=== PATIENT | male | born 1980 | race Caucasian/White ===

== ENCOUNTER 2022-11-24 09:46 | Outpatient (REF) | payer MEDICAID, SELFPAY ==
--- NOTE | ~2022-11-24 | XR_ITS ---
EXAMINATION: Thoracic and lumbar spine x-rays CLINICAL INFORMATION: Pain COMPARISON: Previous lumbar spine x-ray report December 2005. Images not available. TECHNIQUE: 3 views of the thoracic spine including swimmer's view and 5 views of the lumbar spine including bilateral oblique views FINDINGS: Thoracic spine: Bone alignment is normal. No fracture or dislocation. Mild degenerative spondylosis of the lower thoracic spine. Normal disc spaces. Normal paraspinal soft tissues. Lumbar spine: There may be a transitional vertebral body segment or 6 lumbar-type vertebral bodies. Bone alignment is normal. No fracture or dislocation. No pars defect. Normal facet joints. Normal disc spaces. Normal paraspinal soft tissues. XR/XR thoracic spine 2V IMPRESSION: Thoracic spine: Mild degenerative spondylosis of the lower thoracic spine. Lumbar spine: Probable transitional vertebral body segment or 6 lumbar-type vertebral bodies. Otherwise unremarkable exam.
--- NOTE | ~2022-11-24 | XR_ITS ---
EXAMINATION: Thoracic and lumbar spine x-rays CLINICAL INFORMATION: Pain COMPARISON: Previous lumbar spine x-ray report December 2005. Images not available. TECHNIQUE: 3 views of the thoracic spine including swimmer's view and 5 views of the lumbar spine including bilateral oblique views FINDINGS: Thoracic spine: Bone alignment is normal. No fracture or dislocation. Mild degenerative spondylosis of the lower thoracic spine. Normal disc spaces. Normal paraspinal soft tissues. Lumbar spine: There may be a transitional vertebral body segment or 6 lumbar-type vertebral bodies. Bone alignment is normal. No fracture or dislocation. No pars defect. Normal facet joints. Normal disc spaces. Normal paraspinal soft tissues. XR/XR lumbar spine 4V min IMPRESSION: Thoracic spine: Mild degenerative spondylosis of the lower thoracic spine. Lumbar spine: Probable transitional vertebral body segment or 6 lumbar-type vertebral bodies. Otherwise unremarkable exam.
== END 2022-11-24 09:47 | disposition home or self-care (01) ==
LOC: HO.XRAY 09:46
PROVIDERS: PCP Nurse Practitioner Family; Visit Provider Registered Nurse
DX: M54.50 Low back pain, unspecified (principal)
CPT/HCPCS: 72070; 72110

== ENCOUNTER 2022-12-14 12:14 | Outpatient (REF) | payer MEDICAID, SELFPAY ==
--- NOTE | 2022-12-14 | EMG_ITS ---
Please see scanned EMG / Nerve Conduction Report. MTDD
== END 2022-12-14 12:15 | disposition home or self-care (01) ==
LOC: HO.NEURO 12:14
PROVIDERS: PCP Nurse Practitioner Family; Visit Provider Registered Nurse
DX: R20.0 Anesthesia of skin (principal); R20.2 Paresthesia of skin
CPT/HCPCS: 95885; 95911

== ENCOUNTER 2025-01-17 10:41 | Outpatient (AMB) | payer MEDICAID, SELFPAY ==
--- NOTE | 2025-01-17 10:48 | A.OFFVIS_ITS ---
Vital Signs 01/17/25 10:49 Height 5 ft 5 in Weight 159 lb BMI 26.5 BP 113/78 Blood Pressure Location Rt brachial Position Sitting Respiration 16 Pulse 77 Pulse Source Pulse Oximeter Pulse Oximetry (%) 93 Oxygen Delivery Method Room Air Intake Visit Reasons: Chronic bilateral low back pain Medicaid Billing Clerk Required: No Accompanied by: Self / Same As Patient Allergies No Known Allergies (No Known Allergies*) Allergy (Verified 01/17/25 10:52) HPI Comments Details: The patient is a 44-year-old male presenting with chronic low back pain with radiation down the right leg to the foot. The pain began in 2016 following a slip and fall accident. The pain radiates down the right leg to the foot, with symptoms including stabbing pain, numbness, and tingling in the 1st 2nd and 3rd toes. The patient reports that the pain worsens with inclement weather and is exacerbated by certain physical activities. Previous imaging includes x-rays and a CT scan conducted in 2022, with no MRI performed to date. The patient underwent physical therapy at [facility], which included massages, heat packs, and use of a TENS unit, but reported worsening symptoms post-therapy. The patient has been prescribed prednisone, ibuprofen, meloxicam, and cyclobenzaprine, with ibuprofen providing the most relief. The patient expresses anxiety regarding cortisone injections due to fear of adverse effects but is unable to tolerate this pain the longer so is ready to proceed with interventional management. Denies red flag symptoms including new loss of bowel, bladder or saddle anesthesia - Onset: Began in 2016 following a slip and fall accident - Quality: Stabbing pain, numbness, tingling - Location: Right lower back, radiating down the right leg to the foot - Exacerbating factors: Inclement weather, certain physical activities - Relieving factors: Ibuprofen provides relief - Interference: Affects ability to perform daily activities, worsens with sitting on hard surfaces - Affect: Pain impacts mood and daily functioning, causing frustration and anxiety - Analgesia: Currently using ibuprofen, meloxicam, and cyclobenzaprine; ibuprofen is most effective - Adverse Effects: Anxiety about potential adverse effects of cortisone injections - Activities of Daily Living: Pain limits ability to perform daily tasks and recreational activities like fishing - Aberrant Drug Related Behaviors: No evidence of medication misuse or abuse Review of Systems Const Details: - Musculoskeletal: Reports chronic low back pain, right-sided radiculopathy, and sacroiliac joint pain - Neurological: Reports tingling in right big toe and adjacent toes - Psychological: Reports anxiety related to medical procedures Physical Exam Vital Signs: Last Vital Signs Pulse 77 01/17/25 10:49 Resp 16 01/17/25 10:49 BP 113/78 01/17/25 10:49 Pulse Ox 93 01/17/25 10:49 Oxygen Delivery Method Room Air 01/17/25 10:49 BMI result Body Mass Index 26.5 General: awake, alert, oriented. Answers questions appropriately. Fully engaged in examination. Skin: warm, dry, intact HEENT: Normocephalic. Hearing intact. Cardiac: External chest normal in appearance. Respiratory: No cough, audible wheezing or stridor. Abdomen: without gross distension. MS: No obvious swelling or deformities. Able to stand on bilateral tiptoes and bilateral heels.? Able to transition from sit to stand unassisted. Ambulates with bilaterally normal heel strike and toe off Decreased lumbar range of motion, pain worse with extension versus flexion SLR positive on the right Right SIJ: Positive Ga[place], positive thigh thrust, positive SI compression. Tenderness over right PSIS Tenderness over midline lumbar vertebrae and lumbar paraspinal muscles Facet loading positive Neurological: Oriented to person, place, time and situation. Thought process intact. No gait abnormalities appreciated. Psychiatric: Appropriate mood and affect. Good judgment and insight. Results Reviewed Results Reviewed: 11/24/2022 XR/XR thoracic spine/lumbar spine FINDINGS: Thoracic spine: Bone alignment is normal. No fracture or dislocation. Mild degenerative spondylosis of the lower thoracic spine. Normal disc spaces. Normal paraspinal soft tissues. Lumbar spine: There may be a transitional vertebral body segment or 6 lumbar-type vertebral bodies. Bone alignment is normal. No fracture or dislocation. No pars defect. Normal facet joints. Normal disc spaces. Normal paraspinal soft tissues. IMPRESSION: Thoracic spine: Mild degenerative spondylosis of the lower thoracic spine. Lumbar spine: Probable transitional vertebral body segment or 6 lumbar-type vertebral bodies. Otherwise unremarkable exam. Assessment & Plan Assessment & Plan (1) Paresthesia: Code(s): R20.2 - Paresthesia of skin Category: Medical (2) Lumbar radiculopathy: Code(s): M54.16 - Radiculopathy, lumbar region Category: Medical (3) Sacroiliac joint dysfunction of right side: Code(s): M53.3 - Sacrococcygeal disorders, not elsewhere classified Category: Medical Plan The plan includes obtaining a new MRI of the lumbar spine to assess for neural compromise given patient's symptoms including lumbar radiculopathy and paresthesia of the right toes. X-rays of the lower back and sacroiliac joint will be completed, including bending views, to evaluate any bony abnormality. Physical therapy will be initiated to address the sacroiliac joint dysfunction and chronic low back pain. If physical therapy does not provide relief, the possibility of sacroiliac joint injections will be considered, as these can be performed while waiting for the lumbar MRI. The patient is advised to continue current medications, with a preference for ibuprofen due to its effectiveness, and to avoid combining meloxicam with ibuprofen. Patient was informed and verbally consented to the use of an ambient scribe for clinic note documentation during this visit. Orders: Orders XR lumbar spine 6V w bending Today M54.16 - Radiculopathy, lumbar region PT Evaluation and Treatment Today M53.3 - Sacrococcygeal disorders, not elsewhere classified, M54.16 - Radiculopathy, lumbar region MR lumbar spine wo con Today M54.16 - Radiculopathy, lumbar region, R20.2 - Paresthesia of skin XR sacroiliac joint min 3V Today M53.3 - Sacrococcygeal disorders, not elsew here classified Patient Instructions: - Schedule and complete the MRI and x-rays as ordered. - Begin physical therapy sessions as soon as possible. - Continue taking ibuprofen as needed for pain relief, but do not combine with meloxicam. - Return for follow-up after completing physical therapy to reassess treatment options. Coding Level of Care Code New Pt Level 4 (04098) Complex EM visit Add On G2211 Diagnoses Paresthesia R20.2 Lumbar radiculopathy M54.16 Sacroiliac joint dysfunction of right side M53.3
[2025-01-17 10:49] VITALS: BP 113/78; PULSE 77; RESP 16; O2SAT 93; BMI 26.5
--- OUTSIDE RECORDS SUMMARY | 2025-01-17 11:17 | XMS_ITS | Clinical Summary ---
Author Organization [employer] Address [address] [place] [address] Care Team Providers Care School Janitor Name Role Phone Hillary Greene SOHA Primary Care Provider [phone] Allergies No known active allergies Medications ibuprofen 600 MG tablet TAKE 1 TABLET BY MOUTH 3 TIMES DAILY. 90 tablet 12/24/19 25 Active cyclobenzaprin e (Flexeril) 10 MG tablet Take 1 tablet (10 mg) by mouth 3 times daily for 10 days. 30 tablet 12/26/19 25 Active meloxicam (Mobic) 15 MG tablet Take 1 tablet (15 mg) by mouth Once per day. 30 tablet 1 12/26/19 25 025 Active cyclobenzaprin e (Flexeril) 10 MG tablet Take 1 tablet (10 mg) by mouth 3 times daily for 10 days. 30 tablet 11/27/19 25 025 Discontinued(Re order (will not trigger notification to Pharmacy)) ibuprofen 600 MG tablet Take 1 tablet (600 mg) by mouth 3 times daily. 90 tablet 11/27/19 25 025 Discontinued predniSONE (Deltasone) 20 MG tablet Take 2 tablets (40 mg) by mouth Once per day for 5 days. 10 tablet 12/26/19 25 025 Active Problems Problem Noted Date Diagnosed Date Superficial injury of gum with infection 025 Difficulty sleeping 11/11/2022 Kidney stone 11/11/2022 Posttraumatic stress disorder 11/11/2022 Night sweats 11/11/2022 Overweight 11/11/2022 Smokes 1 pack of cigarettes per day 11/11/2022 Tobacco dependence syndrome 11/11/2022 Winded 11/11/2022 Encounters Date Type Department Care Team Description 12/25/2024 10:45 AM EDT Telemedicine [facility] [address] [place] [address] Paulino Simpson MD Chronic bilateral low back pain with left-sided sciatica (Primary Dx) 12/25/2024 Travel 12/23/2024 Telephone [facility] [address] [place] [phone] Hillary Greene FNP Nurse Triage 12/23/2024 Refill [facility] [address] [place] [phone] Paulino Simpson MD 11/30/2024 11:40 AM EDT Office Visit [facility] [address] [place] [phone] Gabriela Pichardo MD Superficial injury of gingiva with infection, initial encounter 11/27/2024 Telephone [facility] [address] [place] [phone] Hillary Greene FNP ER Follow-up 11/26/2024 7:00 PM EDT Office Visit [facility] [address] [address] Paulino Simpson MD Chronic bilateral low back pain with left-sided sciatica (Primary Dx) 11/15/2024 Telephone [facility] [address] [place] [phone] Hillary Greene FNP Referral from Last 3 Months Immunizations Immunization Administration Dates Next Due Influenza injectable quadrivalent preservative f ree 05/02/2022,08/27/2019 Influenza, seasonal, injectable, preservative fr ee 05/18/2016 Pneumococcal Polysaccharide PPSV23 05/18/2016 Tdap 08/30/2019 Social History Tobacco Use Types Packs/Day Years Used Date Smoking Tobacco: Every Day Cigarettes Smokeless Tobacco: Never Tobacco Cessation:Ready to Q uit: Not Asked; Counseling Given: Not Answered Alcohol Use Standard Drinks/Week Comments Never 0 (1 standard drink = 0.6 oz pur e alcohol) Depression Answer Date Recorded Patient Health Questionnaire-9 Score 0 12/25/2024 Patient Health Questionnaire-9 Score 0 12/25/2024 Last PHQ-9: Questionnaire Data Not on file 0 12/25/2024 Housing Stability Answer Date Recorded What is your housing situation today? I have cl herrera 12/25/[address] you li ve. Do you have problems with any of the following? None of the above 12/25/2024 Food Insecurity Answer Date Recorded Within the past 12 months, y ou worried that your food would run out before you got money to buy more: Never True 12/25/2024 Within the past 12 months,th e food you bought just didn't last and you didn't have enough money to get more: Never True Transportation Answer Date Recorded In the past 12 months, has l ack of transportation kept you from medical appts, meetings, work or from getting things needed for daily living? No 12/25/2024 Utilities Answer Date Recorded In the past 12 months, has t he electric, gas, oil or water company threatened to shut off services in your home? No 12/25/2024 Depression Answer Date Recorded Patient Health Questionnaire-2 Score 0 12/25/2024 Internet Access Answer Date Recorded Internet Access Q1 Yes 12/25/2024 Internet Access Q2 Not on file 12/25/2024 Sex and Gender Information Value Date Recorded Sex Assigned at Male 05/09/2022 10:35 AM EDT Legal Sex Male 10:35 AM EDT Gender Identity Male 05/09/2022 10:35 AM EDT Sexual Orientation Straight 05/09/2022 10 :35 AM EDT Last Filed Vital Signs Vital Sign Reading Time Taken Comments Blood Pressure 120/83 11/30/2024 11:31 AM EDT Pulse 74 11/30/2024 11:31 AM EDT Temperature 36.7 C (98 F) 11/30/2024 11:31 AM EDT Respiratory Rate 20 11/30/2024 11:31 AM EDT Oxygen Saturation 96% 11/30/2024 11:31 AM EDT Inhaled Oxygen Concentration - - Weight 77.1 kg (170 lb) 11/30/2024 11:31 AM EDT Height 165.1 cm (5' 5 ) 11/26/2024 6:58 PM EDT Body Mass Index 28.29 11/26/2024 6:58 PM EDT Plan of Treatment Upcoming Encounters Date Type Department Care Team (Late st Contact Info) Description 03/05/2025 10:30 AM EDT Office Visit [facility] [address] [place] [address] Hillary Greene, SOHA [address] [place] [address] Health Maintenance Due Date Last Done Comments Disability Screening 1980 Alcohol/Substance Use Screening 1992 Family Planning (PISQ) 1995 HPV Vaccines (1 - Male 3-dos e series) 1995 Hepatitis B Vaccines (1 of 3 - 19+ 3-dose series) 1999 Pneumococcal Vaccine: Pediatrics (0 to 5 Years) and At-Risk Patients (6 to 49) Years (2 of 2 - PCV) 05/18/2017 05/18/2016 COVID-19 Vaccine (4 - 2023-2 5 season) 2024 05/02/2022, 12/10/2020, 11/02/2020 Influenza Vaccine (#1) 2025 , 08/27/2019, 05/18/2016 Tobacco Screening 11/26/2025 11/26/2024 Depression Screening 12/25/2025 12/25/2024, 12/25/2024 SDOH Screening 12/25/2025 12/25/2024 Lipid Panel 05/20/2026 05/20/2021, 12/10/2020, 05/14/2020 DTaP/Tdap/Td Vaccines (2 - T d or Tdap) 08/30/2029 08/30/2019 Zoster Vaccines (1 of 2) 2030 RSV Patients and Patients Aged 60 years or older (1 - 1-dose 75+ series) 2055 HIV Screening Completed 05/14/2020 Hepatitis C Screening Completed 05/14/2020 HIB Vaccines Aged Out No longer eligi ble based on patient's age to complete this topic Hepatitis A Vaccines Aged Out No long er eligible based on patient's age to complete this topic IPV Vaccines Aged Out No longer eligi ble based on patient's age to complete this topic Meningococcal B Vaccine Aged Out No l onger eligible based on patient's age to complete this topic Meningococcal Vaccine Aged Out No say jennifer eligible based on patient's age to complete this topic RSV under 20 months Aged Out No longe r eligible based on patient's age to complete this topic Rotavirus Vaccines Aged Out No longer eligible based on patient's age to complete this topic Procedures Procedure Name Priority Date/Time Associated Diagnosis Comments LIPID PANEL, STANDARD Routine 05/20/2021 1:06 PM EST ZZZ HISTORICAL HEPATITIS C AB W/REFL TO HCV RNA, QN, PCR Routine 05/14/2020 8:17 PM EST HIV 1/2 ANTIGEN/ANTIBODY, FOURTH GENERATION W/RFL Routine 05/14/2020 8:17 PM EST from Last 3 Months or Most Recently Relevant to Health Maintenance Results * (ABNORMAL) LIPID PANEL, STANDARD (05/20/2021 1:06 PM EST) Chol/HDLC Ratio 6.0(H) <5.0 (calc) [facility] Cholesterol, Total 246(H) <200 mg/dL [facility] HDL Cholesterol 41 > OR = 40 mg/dL [facility] LDL Cholesterol 158(H) mg/dL (calc) [facility] Comment: Reference range: <100 Desirable range <100 mg/dL for primary prevention; <70 mg/dL for patients with CHD or diabetic patients with > or = 2 CHD risk factors. LDL-C is now calculated using the Kirk-Mcdaniel calculation, which is a validated novel method providing better accuracy than the Friedewald equation in the estimation of LDL-C. Kirk SS et al. SHOSHANA. 2013;310(19): 6024-1199 (http://education.Cono-C.Yvolver/faq/IGI459) Non-HDL Cholesterol 205(H) <130 mg/dL (calc) [facility] Comment: For patients with diabetes plus 1 major ASCVD risk factor, treating to a non-HDL-C goal of <100 mg/dL (LDL-C of <70 mg/dL) is considered a therapeutic option. Triglycerides 286(H) <150 mg/dL [facility] Comment: If a non-fasting specimen was collected, consider repeat triglyceride testing on a fasting specimen if clinically indicated. Latonia et al. J. of Clin. Lipidol. 2015;9:129-169. 05/20/2021 1:06 PM EST Alisha Byrd GEOLOGICAL TECHNICAL OFFICER LAB BLOOD ORDERABLES Final Res ult Performing Organization Address [facility] de Phone Number [facility] [address] [place] [address], * HEPATITIS C AB W/REFL TO HCV RNA, QN, PCR (05/14/2020 8:17 PM EST) HEPATITIS C ANTIBODY NON-REACT STEVEN NON-REACT STEVEN [facility] INDEX 0.02 <1.00 [facility] Comment: HCV antibody was non-reactive. There is no laboratory evidence of HCV infection. In most cases, no further action is required. However, if recent HCV exposure is suspected, a test for HCV RNA (test code 68365) is suggested. For additional information please refer to http://MacuLogix.Equipois/faq/SQS49o6 (This link is being provided for informational/ educational purposes only.) HEPATITIS C ANTIBODY NON-REACT STEVEN NON-REACT STEVEN [facility] INDEX 0.02 <1.00 [facility] Comment: HCV antibody was non-reactive. There is no laboratory evidence of HCV infection. In most cases, no further action is required. However, if recent HCV exposure is suspected, a test for HCV RNA (test code 79840) is suggested. For additional information please refer to http://MacuLogix.Equipois/faq/XNU52q3 (This link is being provided for informational/ educational purposes only.) 05/14/2020 8:17 PM EST Taya Brown CONSTRUCTION ACCOUNTANT HISTORICAL/NON ORDERABLE LA BS Final Result Performing Organization Address [facility] de Phone Number [facility] [address] * HIV 1/2 ANTIGEN/ANTIBODY,FOURTH GENERATION W/RFL (05/14/2020 8:17 PM EST) HIV-1/2 ANTIGEN AND ANTIBODIES, 4TH GENERATION W/ REFLEX NON-REACT STEVEN NON-REACT STEVEN [facility] Comment: HIV-1 antigen and HIV-1/HIV-2 antibodies were not detected. There is no laboratory evidence of HIV infection. PLEASE NOTE: This information has been disclosed to you from records whose confidentiality may be protected by state law. If your state requires such protection, then the state law prohibits you from making any further disclosure of the information without the specific written consent of the person to whom it pertains, or as otherwise permitted by law. A general authorization for the release of medical or other information is NOT sufficient for this purpose. For additional information please refer to http://MacuLogix.SportsBlogs.Yvolver/faq/EAO301 (This link is being provided for informational/ educational purposes only.) The performance of this assay has not been clinically validated in patients less than 2 years old. HIV-1/2 ANTIGEN AND ANTIBODIES, 4TH GENERATION W/ REFLEX NON-REACT STEVEN NON-REACT STEVEN [facility] Comment: HIV-1 antigen and HIV-1/HIV-2 antibodies were not detected. There is no laboratory evidence of HIV infection. PLEASE NOTE: This information has been disclosed to you from records whose confidentiality may be protected by state law. If your state requires such protection, then the state law prohibits you from making any further disclosure of the information without the specific written consent of the person to whom it pertains, or as otherwise permitted by law. A general authorization for the release of medical or other information is NOT sufficient for this purpose. For additional information please refer to http://MacuLogix.SportsBlogs.Yvolver/faq/UNJ439 (This link is being provided for informational/ educational purposes only.) The performance of this assay has not been clinically validated in patients less than 2 years old. HIV-1/2 ANTIGEN AND ANTIBODIES, 4TH GENERATION W/ REFLEX NON-REACT STEVEN NON-REACT STEVEN [facility] Comment: HIV-1 antigen and HIV-1/HIV-2 antibodies were not detected. There is no laboratory evidence of HIV infection. PLEASE NOTE: This information has been disclosed to you from records whose confidentiality may be protected by state law. If your state requires such protection, then the state law prohibits you from making any further disclosure of the information without the specific written consent of the person to whom it pertains, or as otherwise permitted by law. A general authorization for the release of medical or other information is NOT sufficient for this purpose. For additional information please refer to http://education.Equipois/faq/UBQ323 (This link is being provided for informational/ educational purposes only.) The performance of this assay has not been clinically validated in patients less than 2 years old. 05/14/2020 8:17 PM EST Taya Brown [facility] LAB BLOOD ORDERABLES Final Result [facility] [address] from Last 3 Months or Most Recently Relevant to Health Maintenance Insurance [employer] Care Teams School Janitor Relationship Specialty Start Date End Date Hillary Greene FNP [address] [place] [address] PCP - General Family Medicine 12/09/22
== END 2025-01-17 11:27 | disposition home or self-care (01) ==
LOC: HO.PMC 10:41
PROVIDERS: PCP Registered Nurse; Referring Provider Internal Medicine; Visit Provider Registered Nurse Emergency
DX: R20.2 Paresthesia of skin (principal); M54.16 Radiculopathy, lumbar region; M53.3 Sacrococcygeal disorders, not elsewhere classified
CPT/HCPCS: 99204

== ENCOUNTER → 2025-01-17 10:41 | Outpatient (BNVA) | payer MEDICAID, SELFPAY | PROVIDERS: PCP Registered Nurse; Referring Provider Internal Medicine; Visit Provider Registered Nurse Emergency | DX: M53.3 Sacrococcygeal disorders, not elsewhere classified (principal); M54.16 Radiculopathy, lumbar region; R20.2 Paresthesia of skin | CPT/HCPCS: 99212 ==

== ENCOUNTER 2025-01-21 14:08 | Outpatient (REF) | payer MEDICAID, SELFPAY ==
--- NOTE | ~2025-01-21 | XR_ITS ---
EXAMINATION: XR SACROILIAC JOINTS CLINICAL INFORMATION: M53.3 - Sacrococcygeal disorders, not elsewhere classified COMPARISON: None available. TECHNIQUE: AP and bilateral oblique views of the sacroiliac joints FINDINGS: SI joints are symmetrical without fusion, sclerosis, or erosions. No osteophytes are evident. XR/XR sacroiliac joint min 3V IMPRESSION: Unremarkable SI joints Electronically signed by: Juan Manuel Oliveira MD 01/21/2025 03:22 PM EDT
--- NOTE | ~2025-01-21 | XR_ITS ---
EXAMINATION: XR LUMBOSACRAL SPINE CLINICAL INFORMATION: M54.16 - Radiculopathy, lumbar region COMPARISON: November 24, 2022 TECHNIQUE: 6 views of the lumbar spine, inclusive of flexion and extension views, were obtained. FINDINGS: There are 5 nonrib-bearing lumbar segments with lumbarization of the S1 segment. Technique:: There are small endplate osteophytes. L1-2: There is mild disc space narrowing and endplate osteophytes. L2-3: Unremarkable. L3-4: There is subtle retrolisthesis and mild space narrowing. L4-5: There is mild disc space narrowing and endplate osteophytes. There is mild facet sclerosis. L5-S1: Unremarkable. S1-2: There is disc formation. With flexion and extension, there is no instability. Oblique views demonstrate no pars interarticularis defect. XR/XR lumbar spine 6V w bending IMPRESSION: There is lumbarization of the S1 segment. Mild multilevel degenerative disc disease has progressed since the prior. Electronically signed by: Juan Manuel Oliveira MD 01/21/2025 03:27 PM EDT
--- NOTE | ~2025-01-21 | XR_ITS ---
Exam: Three-view bilateral hands. TECHNIQUE: PA, oblique, lateral view upper extremity x-rays INDICATION: Bilateral hand there is pain, chronic Prior: None FINDINGS: RIGHT HAND: Chronic amputations the distal tuft of the third digit is present. No other bony abnormality is seen. There are no erosions and joint spaces are preserved. LEFT HAND: There is an expansile centrally lucent lesion within the radial aspect of the neck region of the proximal phalanx of fifth digit the could represent changes from remote fracture or an enchondroma. There is volar angulation of the neck of the fifth metacarpal, likely from a healed boxer's fracture. Joint spaces are preserved. There are no erosions. XR/XR Hand Bilat min 3v Impression: Right hand: Chronic amputation of a portion of the tuft of third digit. Left hand: probable healed boxer's fracture. Expansile cortical lesion with central lucency involving the fifth proximal phalanx is probably posttraumatic but could represent a low-grade chondroid lesion. Electronically signed by: Juan Manuel Oliveira MD 01/21/2025 03:03 PM EDT
--- OUTSIDE RECORDS SUMMARY | 2025-01-21 15:26 | XMS_ITS | Encounter Summary ---
Author Organization [employer] Address [address] [place] [address] Care Team Providers Care Batch Dumper Name Role Phone Hillary Greene AGRICULTURAL EQUIPMENT SALES MANAGER Primary Care Provider [phone] Encounter Details Date Type Department Care Team (Latest Contact Info) Description 01/18/2025 Travel Social History Tobacco Use Types Packs/Day Years Used Date Smoking Tobacco: Every Day Cigarettes Smokeless Tobacco: Never Alcohol Use Standard Drinks/Week Comments Never 0 [...] Orientation Straight 05/09/2022 10 :35 AM EDT documented as of this encounter Plan of Treatment Upcoming Encounters Date Type Department Care Team (Late st Contact Info) Description 03/05/2025 10:30 AM EDT Office Visit [facility] [address] [place] [address] Hillary Greene FNP [address] [place] [address] documented as of this encounter Visit Diagnoses Not on filedocumented in this encounter Additional Health Concerns Assessment Noted Time PHQ-9 Depression Total Score: 0 12/26/19 25 10:54 AM EDT documented as of this encounter Care Teams Batch Dumper Relationship Specialty Start Date End Date iHllary Greene FNP [address] [place] [address] PCP - General Family Medicine 12/09/22 documented as of this encounter
== END 2025-01-21 14:09 | disposition home or self-care (01) ==
LOC: HO.XRAY 14:08
PROVIDERS: PCP Registered Nurse; Visit Provider Student in an Organized Health Care Education/Training Program
DX: M54.16 Radiculopathy, lumbar region (principal); M79.641 Pain in right hand; M79.642 Pain in left hand; M25.531 Pain in right wrist; M25.532 Pain in left wrist; M53.3 Sacrococcygeal disorders, not elsewhere classified
CPT/HCPCS: 72114; 72202; 73130

== ENCOUNTER → 2025-01-21 14:15 | Outpatient (BNV) | payer MEDICAID, SELFPAY | PROVIDERS: PCP Registered Nurse; Visit Provider Radiology Diagnostic Radiology | DX: M54.16 Radiculopathy, lumbar region (principal); M53.3 Sacrococcygeal disorders, not elsewhere classified; M79.642 Pain in left hand; M79.641 Pain in right hand | CPT/HCPCS: 72114; 72202; 73130 ==

== ENCOUNTER → 2025-01-28 19:48 | Outpatient (BNV) | payer MEDICAID, SELFPAY | PROVIDERS: PCP Registered Nurse; Visit Provider Radiology Diagnostic Radiology | DX: M51.16 Intervertebral disc disorders with radiculopathy, lumbar region (principal); M48.061 Spinal stenosis, lumbar region without neurogenic claudication | CPT/HCPCS: 72148 ==

== ENCOUNTER 2025-01-28 19:54 | Outpatient (REF) | payer MEDICAID, SELFPAY ==
--- NOTE | ~2025-01-28 | MR_ITS ---
CLINICAL HISTORY: M54.16 - Radiculopathy, lumbar region MR lumbar spine without gadolinium Comparison: None Findings: For numbering purposes, 5 lumbar type vertebral bodies will be presumed. This should be confirmed with plain films prior to any lumbar spinal intervention.2 mm of retrolisthesis of L2 on L3 and L3 on L4. No acute fracture or pathologic bone lesion. Mild reactive signal throughout the endplates of the lumbar and lower thoracic spine, most prominently at T11-T12, T12-L1, L2-L3, and L3-L4. Cauda equina and conus medullaris within normal limits. Paraspinous musculature intact. No masses. L1-L2: Mild diffuse disc bulge. Mild facet and ligamentum flavum hypertrophy. Mild epidural lipomatosis. Mild canal stenosis. Mild bilateral foraminal stenosis. L2-L3:Moderate disc desiccation. Mild disc height loss and diffuse disc bulge. Mild facet and ligamentum flavum hypertrophy. Mild epidural lipomatosis. Mild canal stenosis. Mild bilateral foraminal stenosis. L3-L4:Mild disc desiccation and diffuse disc bulge. Mild facet and ligamentum flavum hypertrophy. Mild epidural lipomatosis. Mild canal stenosis. Moderate bilateral foraminal stenosis. L4-L5: Mild facet and ligamentum flavum hypertrophy. No significant canal stenosis. Moderate bilateral foraminal stenosis. L5-S1:Mild bilateral facet hypertrophy. No significant canal stenosis. Mild bilateral foraminal stenosis. IMPRESSION: 1. Multilevel degenerative disc and facet disease, as well as ligamentum flavum hypertrophy. 2. Mild multilevel canal stenoses. 3. Multilevel foraminal stenoses, worst at L3-L4 and L4-L5 where there are moderate foraminal stenoses. 4. Plain film correlation is recommended for numbering purposes prior to any lumbar spinal intervention. This document has been electronically signed by: Geremias Marroquin MD on 01/29/2025 17:44:16
--- OUTSIDE RECORDS SUMMARY | 2025-01-28 19:56 | XMS_ITS | Clinical Summary ---
Author Organization [employer] Address [address] [place] [address] Care Team Providers Care Pre Press Manager Name Role Phone Hillary Greene SOHA Primary Care Provider [phone] Allergies No known active allergies Medications ibuprofen 600 MG tablet TAKE 1 TABLET BY MOUTH 3 TIMES DAILY. 90 tablet 5 Active cyclobenzaprin e (Flexeril) 10 MG tablet Take 1 tablet (10 mg) by mouth 3 times daily for 10 days. 30 tablet 5 Active Diclofenac Sodium 1 % gelIndications :Pain in both hands,Pain in both wrists Apply 1 Application topically if needed each day (hand pain). 50 g 5 Active meloxicam (Mobic) 15 MG tablet Take 1 tablet (15 mg) by mouth Once per day. 30 tablet 1 5 025 Discontinu ed(Other) predniSONE (Deltasone) 20 MG tablet Take 2 tablets (40 mg) by mouth Once per day for 5 days. 10 tablet 5 025 lidocaine-pril ocaine (Emla) 2.5-2.5 % creamIndicatio ns:Pain in both hands,Pain in both wrists Apply topically 1 (one) time for 1 dose. 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 -bl hand /wrist XR -referred today for occupation therapy as possible pain has a component of tendinitis from overuse -left hand wrist brace with spica splint -requested today to MICHAEL -tylenol prn ,emla cream ,diclofenac topical -apt w PCP 03/05/2025 -If no better by next apt may need hand surgeon eval for steroid inj ----- Addendum today Bl hand XR 01/21/2025 -Right hand: Chronic amputation of a portion of the tuft of third digit. -Left hand: probable healed boxer's fracture. Expansile cortical lesion with central lucency involving the fifth proximal phalanx is probably posttraumatic but could represent a low-grade chondroid lesion. --- I called reading radiologist and discussed about left hand findings , Radiologist inform lesions seems likely from fracture hx and dont rec for CT scan at this time ,do rec if in doubt could do another hand XR in 6 months to monitor and if significant changes then rec for MRI w /wo contrast . I called pt and informed report , seems XR may no be needed given pt reports hx of fracture in his 5th finger but pt to f w PCP Superficial injury of gum with infection 025 Difficulty sleeping 11/11/2022 Kidney stone 11/11/2022 Posttraumatic stress disorder 11/11/2022 Assessment & Plan (01/21/2025 9:33 PM EDT): ADOLFO 6, denies feeling depressed, no SI -offered BH -today-refuse ,used to have therapist ,no longer -advised to f w PCP at upcoming apt Night sweats 11/11/2022 Overweight 11/11/2022 Tobacco dependence syndrome 11/11/2022 Winded 11/11/2022 Resolved Problems Problem Noted Date Diagnosed Date Resolved Date Smokes 1 pack of cigarettes per day 11/11/2022 01/21/2025 Encounters Date Type Department Care Team Description 01/21/2025 1:30 PM EDT Office Visit [facility] [address] [place] [address] Gabriela Brown MD Pain in both hands (Primary Dx); Pain in both wrists; Bilateral hand pain; Posttraumatic stress disorder; Left wrist tendinitis 01/21/2025 Orders Only [facility] External Provider, [facility] 01/21/2025 Results Follow-Up [address] [address] Gabriela Brown MD XR Hand 3+Views Bilateral 01/21/[address] [address] Gabriela Brown MD Durable Medical Equipment 01/21/2025 Travel 01/20/[address] [address] Gabriela Brown MD chart prep 01/18/2025 Travel 12/25/2024 10:45 AM EDT Telemedicine [facility] [address] [place] [address] Paulino Simpson MD Chronic bilateral low back pain with left-sided sciatica (Primary Dx) 12/25/2024 Travel 12/23/[address] [address] Hillary Greene FNP Nurse Triage 12/23/2024 Refill [facility] [address] [address] Paulino Simpson MD 11/30/2024 11:40 AM EDT [facility] [address] [address] Gabriela Pichardo MD Superficial injury of gingiva with infection, initial encounter 11/27/[address] [address] Hillary Greene FNP ER Follow-up 11/26/2024 7:00 PM EDT [facility] [address] [address] Paulino Simpson MD Chronic bilateral low back pain with left-sided sciatica (Primary Dx) 11/15/[address] [address] Hillary Greene FNP Referral from Last 3 [...] Sign Reading Time Taken Comments Blood Pressure 108/72 01/21/2025 1:41 PM EDT Pulse 61 01/21/2025 1:41 PM EDT Temperature 36.3 C (97.3 F) 01/21/2025 1:41 PM EDT Respiratory Rate 20 01/21/2025 1:41 PM EDT Oxygen Saturation 96% 01/21/2025 1:41 PM EDT Inhaled Oxygen Concentration - - Weight 74.4 kg (164 lb) 01/21/2025 1:41 PM EDT Height 165.1 cm (5' 5 ) 01/21/2025 1:41 PM EDT Body Mass Index 27.29 01/21/2025 1:41 PM EDT Plan of Treatment Upcoming Encounters Date Type Department Care Team (Late st Contact Info) Description 03/05/2025 10:30 AM EDT Office Visit [facility] [address] [place] [address] Hillary Greene, TELEVISION ANNOUNCER [address] [place], [place] [phone] Health Maintenance Due Date Last Done Comments Family Planning (PISQ) 1995 HPV Vaccines (1 - Male 3-dos e series) 1995 Hepatitis B Vaccines (1 of 3 - 19+ 3-dose series) 1999 Pneumococcal Vaccine: Pediatrics (0 to 5 Years) and At-Risk Patients (6 to 49) Years (2 of 2 - PCV) 05/18/2017 05/18/2016 COVID-19 Vaccine (4 - 2023-2 5 season) 2024 05/02/2022, 12/10/2020, 11/02/2020 Influenza Vaccine (#1) 2025 , 08/27/2019, 05/18/2016 Depression Screening 12/25/2025 12/25/2024, 12/25/2024 SDOH Screening 12/25/2025 12/25/2024 Alcohol/Substance Use Screening 01/21/2026 01/21/2025 Disability Screening 01/21/2026 01/21/2025 Tobacco Screening 01/21/2026 01/21/2025 Lipid Panel 05/20/2026 05/20/2021, 12/10/2020, 05/14/2020 DTaP/Tdap/Td [...] Procedure Name Priority Date/Time Associated Diagnosis Comments XR LUMBAR SPINE 6V W BENDING Routine 01/21/2025 3:00 PM EDT XR SACROILIAC JOINTS 3+ VIEWS Routine 01/21/2025 3:00 PM EDT XR HAND 3+ VIEWS BILATERAL Routine 01/21/2025 1:37 PM EDT Pain in both hands Pain in both wrists LIPID PANEL, STANDARD Routine 05/20/2021 1:06 PM EST [facility] HISTORICAL HEPATITIS C AB W/REFL TO HCV RNA, QN, PCR Routine 05/14/2020 8:17 PM EST HIV 1/2 ANTIGEN/ANTIBODY, FOURTH GENERATION W/RFL Routine 05/14/2020 8:17 PM EST from Last 3 Months or Most Recently Relevant to Health Maintenance Results * XR LUMBAR SPINE 6V W BENDING (01/21/2025 3:00 PM EDT) Anatomical Region Laterality Modality Abdomen Radiographic Nadira ging 01/21/2025 3:00 PM EDT Narrative 01/21/2025 3:30 PM EDT [address] [address] XRay Report Signed Patient: Ruslan Mason MR#: [id number] : 1980 Acct:[id number] Age/Sex: 44 / M ADM Date: 01/21/25 Loc: JOE Attending Dr: Gabriela Olivier MD Ordering Physician: Nalini Quinones APRN, CNP Date of Service: 01/21/25 Procedure(s): XR lumbar spine 6V w bending Accession Number(s): [id number] cc: Nalini Quinones APRN, AMBROSE; Hillary Greene EXAMINATION: XR LUMBOSACRAL SPINE CLINICAL INFORMATION: M54.16 - Radiculopathy, lumbar region COMPARISON: November 24, 2022 TECHNIQUE: 6 views of the lumbar spine, inclusive of flexion and extension views, were obtained. FINDINGS: There are 5 nonrib-bearing lumbar segments with lumbarization of the S1 segment. Technique:: There are small endplate osteophytes. L1-2: There is mild disc space narrowing and endplate osteophytes. L2-3: Unremarkable. L3-4: There is subtle retrolisthesis and mild space narrowing. L4-5: There is mild disc space narrowing and endplate osteophytes. There is mild facet sclerosis. L5-S1: Unremarkable. S1-2: There is disc formation. With flexion and extension, there is no instability. Oblique views demonstrate no pars interarticularis defect. XR/XR lumbar spine 6V w bending IMPRESSION: There is lumbarization of the S1 segment. Mild multilevel degenerative disc disease has progressed since the prior. Electronically signed by: Juan aMnuel Oliveira MD 01/21/2025 03:27 PM EDT Dictated By: Juan Manuel Oliveira MD Signed By: <Electronically signed by Juan Manuel Oliveira MD in OV> 01/21/25 1527 DD/ 1500 TD/TT: 01/21/25 1509 Store Administrative Assistant: Procedure Note Donotuseinterpreter, Image - 01/21/[address] [address] XRay Report Signed Patient: Ruslan MasonMR#: [id number] : 1980Acct:[id number] Age/Sex: 44 / MADM Date: 01/21/25 Loc: HO.XRAY Attending Dr: Gabriela Olivier MD Ordering Physician: Nalini Quinones APRN, CNP Date of Service: 01/21/25 Procedure(s): XR lumbar spine 6V w bending Accession Number(s): [id number] cc: Nalini Quinones APRN, AMBROSE; Hillary Greene EXAMINATION: XR LUMBOSACRAL SPINE CLINICAL INFORMATION: M54.16 - Radiculopathy, lumbar region COMPARISON: November 24, 2022 TECHNIQUE: 6 views of the lumbar spine, inclusive of flexion and extension views, were obtained. FINDINGS: There are 5 nonrib-bearing lumbar segments with lumbarization of the S1 segment. Technique:: There are small endplate osteophytes. L1-2: There is mild disc space narrowing and endplate osteophytes. L2-3: Unremarkable. L3-4: There is subtle retrolisthesis and mild space narrowing. L4-5: There is mild disc space narrowing and endplate osteophytes. There is mild facet sclerosis. L5-S1: Unremarkable. S1-2: There is disc formation. With flexion and extension, there is no instability. Oblique views demonstrate no pars interarticularis defect. XR/XR lumbar spine 6V w bending IMPRESSION: There is lumbarization of the S1 segment. Mild multilevel degenerative disc disease has progressed since the prior. Electronically signed by: Juan Manuel Oliveira MD 01/21/2025 03:27 PM EDT Dictated By: Juan Manuel Oliveira MD Signed By: <Electronically signed by Juan Manuel Oliveira MD in OV> 01/21/25 1527 DD/ 1500 TD/TT: 01/21/25 1509 Store Administrative Assistant: us [facility] External Provider IMG XR PROCEDURES Final Result * XR Sacroiliac Joints 3+ Views (01/21/2025 3:00 PM EDT) Anatomical Region Laterality Modality Sacroiliac joint, Pelvis Radiogr aphic Imaging 01/21/2025 3:00 PM EDT Narrative 01/21/2025 3:24 PM EDT [address] [address] XRay Report Signed Patient: Ruslan Mason MR#: [id number] : 1980 Acct:[id number] Age/Sex: 44 / M ADM Date: 01/21/25 Loc: JOE Attending Dr: Gabriela Olivier MD Ordering Physician: Nalini Quinones APRN, CNP Date of Service: 01/21/25 Procedure(s): XR sacroiliac joint min 3V Accession Number(s): [id number] cc: Nalini Quinones APRN, AMBROSE; Hillary Greene TELEVISION ANNOUNCER EXAMINATION: XR SACROILIAC JOINTS CLINICAL INFORMATION: M53.3 - Sacrococcygeal disorders, not elsewhere classified COMPARISON: None available. TECHNIQUE: AP and bilateral oblique views of the sacroiliac joints FINDINGS: SI joints are symmetrical without fusion, sclerosis, or erosions. No osteophytes are evident. XR/XR sacroiliac joint min 3V IMPRESSION: Unremarkable SI joints Electronically signed by: Juan Manuel Oliveira MD 01/21/2025 03:22 PM EDT Dictated By: Juan Manuel Oliveira MD Signed By: <Electronically signed by Juan Manuel Oliveira MD in OV> 01/21/25 1522 DD/ 1500 TD/TT: 01/21/25 1509 Store Administrative Assistant: Procedure Note Donotuseinterpreter, Image - 01/21/[address] [address] XRay Report Signed Patient: Ruslan MasonMR#: [id number] : 1980Acct:[id number] Age/Sex: 44 / MADM Date: 01/21/25 Loc: JOE Attending Dr: Gabriela Olivier MD Ordering Physician: Nalini Quinones APRN, CNP Date of Service: 01/21/25 Procedure(s): XR sacroiliac joint min 3V Accession Number(s): [id number] cc: Nalini Quinones APRN, AMBROSE; Hillary Greene TELEVISION ANNOUNCER EXAMINATION: XR SACROILIAC JOINTS CLINICAL INFORMATION: M53.3 - Sacrococcygeal disorders, not elsewhere classified COMPARISON: None available. TECHNIQUE: AP and bilateral oblique views of the sacroiliac joints FINDINGS: SI joints are symmetrical without fusion, sclerosis, or erosions. No osteophytes are evident. XR/XR sacroiliac joint min 3V IMPRESSION: Unremarkable SI joints Electronically signed by: Juan Manuel Oliveira MD 01/21/2025 03:22 PM EDT Dictated By: Juan Manuel Oliveira MD Signed By: <Electronically signed by Juan Manuel Oliveira MD in OV> 01/21/25 1522 DD/ 1500 TD/TT: 01/21/25 1509 Store Administrative Assistant: [facility] External Provider IMG XR PROCEDURES Final Result * XR Hand 3+Views Bilateral (01/21/2025 1:37 PM EDT) Anatomical Region Laterality Modality Upper Extremities, Hand Bilateral Radiogra phic Imaging 01/21/2025 1:37 PM EDT Narrative 01/21/2025 3:06 PM EDT [place] [address] XRay Report Signed Patient: Ruslan Mason MR#: [id number] : 1980 Acct:[id number] Age/Sex: 44 / M ADM Date: 01/21/25 Loc: JOE Attending Dr: Gabriela Olivier MD Ordering Physician: Gabriela Brown MD Date of Service: 01/21/25 Procedure(s): XR Hand Bilat min 3v Accession Number(s): [id number] cc: Hillary Greene; Gabriela Brown MD Exam: Three-view bilateral hands. TECHNIQUE: PA, oblique, lateral view upper extremity x-rays INDICATION: Bilateral hand there is pain, chronic Prior: None FINDINGS: RIGHT HAND: Chronic amputations the distal tuft of the third digit is present. No other bony abnormality is seen. There are no erosions and joint spaces are preserved. LEFT HAND: There is an expansile centrally lucent lesion within the radial aspect of the neck region of the proximal phalanx of fifth digit the could represent changes from remote fracture or an enchondroma. There is volar angulation of the neck of the fifth metacarpal, likely from a healed boxer's fracture. Joint spaces are preserved. There are no erosions. XR/XR Hand Bilat min 3v Impression: Right hand: Chronic amputation of a portion of the tuft of third digit. Left hand: probable healed boxer's fracture. Expansile cortical lesion with central lucency involving the fifth proximal phalanx is probably posttraumatic but could represent a low-grade chondroid lesion. Electronically signed by: Juan Manuel Oliveira MD 01/21/2025 03:03 PM EDT Dictated By: Juan Manuel Oliveira MD Signed By: <Electronically signed by Juan Manuel Oliveira MD in OV> 01/21/25 1503 DD/ 1337 TD/TT: 01/21/25 1400 Store Administrative Assistant: Procedure Note Donotuseinterpreter, Image - 01/21/[address] [address] XRay Report Signed Patient: Ruslan Mason#: [id number] : 1980Acct:[id number] Age/Sex: 44 / MADM Date: 01/21/25 Loc: HO.XRAY Attending Dr: Gabriela Olivier MD Ordering Physician: Gabriela Brown MD Date of Service: 01/21/25 Procedure(s): XR Hand Bilat min 3v Accession Number(s): [id number] cc: Hillary Greene; Gabriela Brown MD Exam: Three-view bilateral hands. TECHNIQUE: PA, oblique, lateral view upper extremity x-rays INDICATION: Bilateral hand there is pain, chronic Prior: None FINDINGS: RIGHT HAND: Chronic amputations the distal tuft of the third digit is present. No other bony abnormality is seen. There are no erosions and joint spaces are preserved. LEFT HAND: There is an expansile centrally lucent lesion within the radial aspect of the neck region of the proximal phalanx of fifth digit the could represent changes from remote fracture or an enchondroma. There is volar angulation of the neck of the fifth metacarpal, likely from a healed boxer's fracture. Joint spaces are preserved. There are no erosions. XR/XR Hand Bilat min 3v Impression: Right hand: Chronic amputation of a portion of the tuft of third digit. Left hand: probable healed boxer's fracture. Expansile cortical lesion with central lucency involving the fifth proximal phalanx is probably posttraumatic but could represent a low-grade chondroid lesion. Electronically signed by: Juan Manuel Oliveira MD 01/21/2025 03:03 PM EDT Dictated By: Juan Manuel Oliveira MD Signed By: <Electronically signed by Juan Manuel Oliveira MD in OV> 01/21/25 1503 DD/ 1337 TD/TT: 01/21/25 1400 Store Administrative Assistant: us Gabriela Olivier MD IMG XR PROCEDURES Final Result * (ABNORMAL) LIPID PANEL, STANDARD (05/20/2021 1:06 [...] equation in the estimation of LDL-C. Kirk BROWN et al. SHOSHANA. 2013;310(19): 1759-7135 (http://education.LPATH/faq/XRW222) Non-HDL Cholesterol 205(H) <130 mg/dL (calc) [facility] [...] Clin. Lipidol. 2015;9:129-169. 05/20/2021 1:06 PM EST us Alisha Byrd NP LAB BLOOD ORDERABLES Final Res ult [facility] [address] * HEPATITIS C AB W/REFL TO HCV RNA, QN, PCR (05/14/2020 8:17 PM EST) HEPATITIS C ANTIBODY NON-REACT STEVEN NON-REACT STEVEN [facility] INDEX 0.02 <1.00 [facility] Comment: HCV antibody was non-reactive. There is no laboratory evidence of HCV infection. In most cases, no further action is required. However, if recent HCV exposure is suspected, a test for HCV RNA (test code 90387) is suggested. For additional information please refer to http://education.NCLC/faq/QFE86e3 (This link is being provided for informational/ educational purposes only.) HEPATITIS C ANTIBODY NON-REACT STEVEN NON-REACT STEVEN [facility] INDEX 0.02 <1.00 [facility] Comment: HCV antibody was non-reactive. There is no laboratory evidence of HCV infection. In most cases, no further action is required. However, if recent HCV exposure is suspected, a test for HCV RNA (test code 97370) is suggested. For additional information please refer to http://Zighra.NCLC/faq/WTZ22e4 (This link is being provided for informational/ educational purposes only.) 05/14/2020 8:17 PM EST Taya Brown TELEVISION ANNOUNCER HISTORICAL/NON ORDERABLE LA BS Final Result [facility] [address] [place] [address], * HIV 1/2 ANTIGEN/ANTIBODY,FOURTH GENERATION W/RFL (05/14/2020 [...] purpose. For additional information please refer to http://Zighra.TourNative.[employer]./faq/NLK767 (This link is being provided for informational/ educational purposes only.) The performance of this assay has not been clinically validated in patients less than 2 years old. HIV-1/2 ANTIGEN AND ANTIBODIES, 4TH GENERATION W/ REFLEX NON-REACT STEVEN NON-REACT STEVEN [facility] Comment: HIV-1 antigen and HIV-1/HIV-2 [...] purpose. For additional information please refer to http://Zighra.NCLC/faq/HMX516 (This link is being provided for informational/ educational purposes only.) The performance of this assay has not been clinically validated in patients less than 2 years old. HIV-1/2 ANTIGEN AND ANTIBODIES, 4TH GENERATION W/ REFLEX NON-REACT STEVEN NON-REACT STEVEN [facility] Comment: HIV-1 antigen and HIV-1/HIV-2 [...] purpose. For additional information please refer to http://Zighra.NCLC/faq/SBQ482 (This link is being provided for informational/ educational purposes only.) The performance of this assay has not been clinically validated in patients less than 2 years old. 05/14/2020 8:17 PM EST us Taya Brown TELEVISION ANNOUNCER LAB BLOOD ORDERABLES Final Result [facility] [address] from Last 3 Months or Most Recently Relevant to Health Maintenance [facility] Care Teams Pre Press Manager Relationship Specialty Start Date End Date Hillary Greene FNP [address] [place] [id number] PCP - General Family Medicine 12/09/22
== END 2025-01-28 19:55 | disposition home or self-care (01) ==
LOC: HO.MRI 19:54
PROVIDERS: PCP Registered Nurse; Visit Provider Registered Nurse Emergency
DX: M54.16 Radiculopathy, lumbar region (principal); R20.2 Paresthesia of skin
CPT/HCPCS: 72148

== ENCOUNTER 2025-02-07 10:49 | Outpatient (AMB) | payer MEDICAID, SELFPAY ==
[2025-02-07 10:50] VITALS: BP 139/79; PULSE 76; RESP 16; O2SAT 100; BMI 26.6
--- NOTE | 2025-02-07 10:50 | A.OFFVIS_ITS ---
Vital Signs 02/07/25 10:50 Height 5 ft 5 in Weight 160 lb BMI 26.6 BP 139/79 Blood Pressure Location Lt brachial Position Sitting Respiration 16 Pulse 76 Pulse Source Pulse Oximeter Pulse Oximetry (%) 100 Oxygen Delivery Method Room Air Intake Visit Reasons: MRI Review Security Professional Required: No Accompanied by: Self / Same As Patient Allergies No Known Allergies (No Known Allergies*) Allergy (Verified 02/07/25 10:54) HPI Comments Details: The patient is a 44-year-old male presenting for follow-up, review of recent MRI and x-rays. Imaging reviewed, results as per below The patient reports pain that extends from the right lower back down to the foot, with numbness in the first three toes. The pain is exacerbated by lifting heavy objects and descending stairs, and it is associated with swelling and palpable bumps in the affected area. - Pain extends from the back to the foot, primarily affecting the right leg. - Numbness in the first three toes of the right foot. - Pain exacerbated by lifting heavy objects and descending stairs. - Associated with swelling and palpable bumps in the affected area. Review of Systems Const Details: - Musculoskeletal: Reports pain extending from the back to the foot, numbness in the first three toes, and swelling with palpable bumps. Physical Exam Exam Exam: General: awake, alert, oriented. Answers questions appropriately. Fully engaged in examination. Skin: warm, dry, intact HEENT: Normocephalic. Hearing intact. Cardiac: External chest normal in appearance. Respiratory: No cough, audible wheezing or stridor. Abdomen: without gross distension. MS: No obvious swelling or deformities. Able to transition from sit to stand unassisted. Neurological: Oriented to person, place, time and situation. Thought process intact. No gait abnormalities appreciated. Psychiatric: Appropriate mood and affect. Good judgment and insight. Vital Signs: Last Vital Signs Pulse 76 02/07/25 10:50 Resp 16 02/07/25 10:50 BP 139/79 02/07/25 10:50 Pulse Ox 100 02/07/25 10:50 Oxygen Delivery Method Room Air 02/07/25 10:50 BMI result Body Mass Index 26.6 Results Reviewed Results Reviewed: 01/29/25 MRI lumbar spine Findings: For numbering purposes, 5 lumbar type vertebral bodies will be presumed. This should be confirmed with plain films prior to any lumbar spinal intervention.2 mm of retrolisthesis of L2 on L3 and L3 on L4. No acute fracture or pathologic bone lesion. Mild reactive signal throughout the endplates of the lumbar and lower thoracic spine, most prominently at T11-T12, T12-L1, L2-L3, and L3-L4. Cauda equina and conus medullaris within normal limits. Paraspinous musculature intact. No masses. L1-L2: Mild diffuse disc bulge. Mild facet and ligamentum flavum hypertrophy. Mild epidural lipomatosis. Mild canal stenosis. Mild bilateral foraminal stenosis. L2-L3:Moderate disc desiccation. Mild disc height loss and diffuse disc bulge. Mild facet and ligamentum flavum hypertrophy. Mild epidural lipomatosis. Mild canal stenosis. Mild bilateral foraminal stenosis. L3-L4:Mild disc desiccation and diffuse disc bulge. Mild facet and ligamentum flavum hypertrophy. Mild epidural lipomatosis. Mild canal stenosis. Moderate bilateral foraminal stenosis. L4-L5: Mild facet and ligamentum flavum hypertrophy. No significant canal stenosis. Moderate bilateral foraminal stenosis. L5-S1:Mild bilateral facet hypertrophy. No significant canal stenosis. Mild bilateral foraminal stenosis. IMPRESSION: 1. Multilevel degenerative disc and facet disease, as well as ligamentum flavum hypertrophy. 2. Mild multilevel canal stenoses. 3. Multilevel foraminal stenoses, worst at L3-L4 and L4-L5 where there are moderate foraminal stenoses. 4. Plain film correlation is recommended for numbering purposes prior to any lumbar spinal intervention. 01/21/25 XR/XR sacroiliac joint min 3V IMPRESSION: Unremarkable SI joints 01/21/25 XR/XR lumbar spine 6V w bending FINDINGS: There are 5 nonrib-bearing lumbar segments with lumbarization of the S1 segment. Technique:: There are small endplate osteophytes. L1-2: There is mild disc space narrowing and endplate osteophytes. L2-3: Unremarkable. L3-4: There is subtle retrolisthesis and mild space narrowing. L4-5: There is mild disc space narrowing and endplate osteophytes. There is mild facet sclerosis. L5-S1: Unremarkable. S1-2: There is disc formation. With flexion and extension, there is no instability. Oblique views demonstrate no pars interarticularis defect. IMPRESSION: There is lumbarization of the S1 segment. Mild multilevel degenerative disc disease has progressed since the prior. 11/24/2022 XR/XR thoracic spine/lumbar spine FINDINGS: Thoracic spine: Bone alignment is normal. No fracture or dislocation. Mild degenerative spondylosis of the lower thoracic spine. Normal disc spaces. Normal paraspinal soft tissues. Lumbar spine: There may be a transitional vertebral body segment or 6 lumbar-type vertebral bodies. Bone alignment is normal. No fracture or dislocation. No pars defect. Normal facet joints. Normal disc spaces. Normal paraspinal soft tissues. IMPRESSION: Thoracic spine: Mild degenerative spondylosis of the lower thoracic spine. Lumbar spine: Probable transitional vertebral body segment or 6 lumbar-type vertebral bodies. Otherwise unremarkable exam. Assessment & Plan Assessment & Plan (1) Paresthesia: Code(s): R20.2 - Paresthesia of skin Category: Medical (2) Lumbar radiculopathy: Code(s): M54.16 - Radiculopathy, lumbar region Category: Medical Plan A nerve conduction study will be ordered to assess the source of the patient's symptoms, particularly to determine if the pain and numbness are due to nerve compression or other causes. If the nerve conduction study indicates nerve involvement, potential interventions may include epidural steroid injection. If the study does not show nerve involvement, joint injections may be considered to alleviate symptoms. The patient will be contacted to schedule the nerve conduction study once insurance approval is obtained, and a follow-up appointment will be arranged to discuss the results. Patient was informed and verbally consented to the use of an ambient scribe for clinic note documentation during this visit. Orders: Orders NE electromyogram (EMG) Today M54.16 - Radiculopathy, lumbar region, R20.2 - Paresthesia of skin NE nerve conduction velocity Today M54.16 - Radiculopathy, lumbar region, R20.2 - Paresthesia of skin Patient Instructions: - Await contact for scheduling the nerve conduction study. - Schedule a follow-up appointment after the study to discuss results. Coding Level of Care Code Est Pt Level 3 (62626) Complex EM visit Add On G2211 Diagnoses Paresthesia R20.2 Lumbar radiculopathy M54.16
--- OUTSIDE RECORDS SUMMARY | 2025-02-07 10:58 | XMS_ITS | Clinical Summary ---
Author Organization [employer] Address [address] [place] [address] [address] [place] [address] Care Team Providers Care Cleaner Signs Name Role Phone DaisyHillary mcpherson SOHA Primary Care Provider [phone] Allergies No known active allergies Medications ibuprofen [...] 30 tablet 1 5 025 Discontinu ed(Other) lidocaine-pril ocaine (Emla) 2.5-2.5 % creamIndicatio ns:Pain [...] brace with spica splint -requested today to [place] -tylenol prn ,emla cream ,diclofenac topical -apt [...] Description 01/21/2025 1:30 PM EDT Office Visit [facility] [address], [place] [phone] Gabriela Brown MD Pain in both hands (Primary Dx); Pain in both wrists; Bilateral hand pain; Posttraumatic stress disorder; Left wrist tendinitis 01/21/2025 Orders Only [facility] External Provider, [facility] 01/21/2025 Results Follow-Up [address] [address] Gabriela Brown MD XR Hand 3+Views Bilateral 01/21/[address] [address] Gabriela Brown MD Durable Medical Equipment 01/21/2025 Travel 01/20/[address] [address] Gabriela Brown MD chart prep 01/18/2025 Travel 12/25/2024 10:45 AM EDT Telemedicine [facility] [address] [place] [address] Paulino Simpson MD Chronic bilateral low back pain with left-sided sciatica (Primary Dx) 12/25/2024 Travel 12/23/[address] [address] Hillary Greene FNP Nurse Triage 12/23/2024 Refill [facility] [address] [place] [address] Paulino Simpson MD 11/30/2024 11:40 AM EDT Office Visit [facility] [address] [address] Gabriela Pichardo MD Superficial injury of gingiva with infection, initial encounter 11/27/[address] [address] Hillary Greene FNP ER Follow-up 11/26/2024 7:00 PM EDT Office Visit [facility] [address] [address] Paulino Simpson MD Chronic bilateral low back pain with left-sided sciatica (Primary Dx) 11/15/[address] [address] Hillary Greene FNP Referral from Last 3 [...] Description 03/05/2025 10:30 AM EDT Office Visit [facility] [address] [place] [address] Hillary Greene, CHEMICAL MANAGER [address] [place], [place] [phone] Health Maintenance Due Date Last Done Comments [...] Procedure Name Priority Date/Time Associated Diagnosis Comments MR LUMBAR SPINE WO CONTRAST Routine 01/29/2025 5:44 PM EDT XR LUMBAR SPINE 6V W BENDING Routine [...] Recently Relevant to Health Maintenance Results * MR Lumbar Spine w/o Contrast (01/29/2025 5:44 PM EDT) Anatomical Region Laterality Modality Spine, L-spine Magnetic Resonan ce 01/29/2025 5:44 PM EDT Narrative 01/29/2025 5:45 PM EDT [address] [address] Magnetic Resonance Report Signed Patient: Ruslan Mason MR#: [id number] : 1980 Acct:[id number] Age/Sex: 44 / M ADM Date: 01/28/25 Loc: HO.MRI Attending Dr: Nalini Quinones APRN, CNP Ordering Physician: Nalini Quinones APRN, CNP Date of Service: 01/28/25 Procedure(s): MR lumbar spine wo con Accession Number(s): [id number] cc: Nalini Quinones APRN, CNP; Hillary Greene CLINICAL HISTORY: M54.16 - Radiculopathy, lumbar region MR lumbar spine without gadolinium Comparison: None Findings: For numbering purposes, 5 lumbar type vertebral bodies will be presumed. This should be confirmed with plain films prior to any lumbar spinal intervention.2 mm of retrolisthesis of L2 on L3 and L3 on L4. No acute fracture or pathologic bone lesion. Mild reactive signal throughout the endplates of the lumbar and lower thoracic spine, most prominently at T11-T12, T12-L1, L2-L3, and L3-L4. Cauda equina and conus medullaris within normal limits. Paraspinous musculature intact. No masses. L1-L2: Mild diffuse disc bulge. Mild facet and ligamentum flavum hypertrophy. Mild epidural lipomatosis. Mild canal stenosis. Mild bilateral foraminal stenosis. L2-L3:Moderate disc desiccation. Mild disc height loss and diffuse disc bulge. Mild facet and ligamentum flavum hypertrophy. Mild epidural lipomatosis. Mild canal stenosis. Mild bilateral foraminal stenosis. L3-L4:Mild disc desiccation and diffuse disc bulge. Mild facet and ligamentum flavum hypertrophy. Mild epidural lipomatosis. Mild canal stenosis. Moderate bilateral foraminal stenosis. L4-L5: Mild facet and ligamentum flavum hypertrophy. No significant canal stenosis. Moderate bilateral foraminal stenosis. L5-S1:Mild bilateral facet hypertrophy. No significant canal stenosis. Mild bilateral foraminal stenosis. IMPRESSION: 1. Multilevel degenerative disc and facet disease, as well as ligamentum flavum hypertrophy. 2. Mild multilevel canal stenoses. 3. Multilevel foraminal stenoses, worst at L3-L4 and L4-L5 where there are moderate foraminal stenoses. 4. Plain film correlation is recommended for numbering purposes prior to any lumbar spinal intervention. This document has been electronically signed by: Geremias Marroquin MD on 01/29/2025 17:44:16 Dictated By: Geremias Marroquin MD Signed By: <Electronically signed by Geremias Marroquin MD in OV> 01/29/251744 DD/ 43 TD/TT: 01/29/251743 Bioassayist: Procedure Note Donotuseinterpreter, Image - 01/29/2025 [place] [address] Magnetic Resonance Report Signed Patient: Ruslan Mason#: [id number] : 1980Acct:[id number] Age/Sex: 44 / MADM Date: 01/28/25 Loc: HO.MRI Attending Dr: Nalini Quinones APRN, CNP Ordering Physician: Nalini Quinones APRN, CNP Date of Service: 01/28/25 Procedure(s): MR lumbar spine wo con Accession Number(s): [id number] cc: Nalini Quinones APRN, AMBROSE; Hillary Greene CLINICAL HISTORY: M54.16 - Radiculopathy, lumbar region MR lumbar spine without gadolinium Comparison: None Findings: For numbering purposes, 5 lumbar type vertebral bodies will be presumed. This should be confirmed with plain films prior to any lumbar spinal intervention.2 mm of retrolisthesis of L2 on L3 and L3 on L4. No acute fracture or pathologic bone lesion. Mild reactive signal throughout the endplates of the lumbar and lower thoracic spine, most prominently at T11-T12, T12-L1, L2-L3, and L3-L4. Cauda equina and conus medullaris within normal limits. Paraspinous musculature intact. No masses. L1-L2: Mild diffuse disc bulge. Mild facet and ligamentum flavum hypertrophy. Mild epidural lipomatosis. Mild canal stenosis. Mild bilateral foraminal stenosis. L2-L3:Moderate disc desiccation. Mild disc height loss and diffuse disc bulge. Mild facet and ligamentum flavum hypertrophy. Mild epidural lipomatosis. Mild canal stenosis. Mild bilateral foraminal stenosis. L3-L4:Mild disc desiccation and diffuse disc bulge. Mild facet and ligamentum flavum hypertrophy. Mild epidural lipomatosis. Mild canal stenosis. Moderate bilateral foraminal stenosis. L4-L5: Mild facet and ligamentum flavum hypertrophy. No significant canal stenosis. Moderate bilateral foraminal stenosis. L5-S1:Mild bilateral facet hypertrophy. No significant canal stenosis. Mild bilateral foraminal stenosis. IMPRESSION: 1. Multilevel degenerative disc and facet disease, as well as ligamentum flavum hypertrophy. 2. Mild multilevel canal stenoses. 3. Multilevel foraminal stenoses, worst at L3-L4 and L4-L5 where there are moderate foraminal stenoses. 4. Plain film correlation is recommended for numbering purposes prior to any lumbar spinal intervention. This document has been electronically signed by: Geremias Marroquin MD on 01/29/2025 17:44:16 Dictated By: Geremias Marroquin MD Signed By: <Electronically signed by Geremias Marroquin MD in OV> 01/29/251744 DD/ 43 TD/TT: 01/29/251743 Bioassayist: [facility] External Provider IMG MRI PROCEDURES Final Result * XR LUMBAR SPINE 6V W BENDING (01/21/2025 3:00 PM EDT) Anatomical Region Laterality Modality Abdomen Radiographic Nadira ging 01/21/2025 3:00 PM EDT Narrative 01/21/2025 3:30 PM EDT [address] [address] XRay Report Signed Patient: Ruslan Mason MR#: [id number] : 1980 Acct:[id number] Age/Sex: 44 / M ADM Date: 01/21/25 Loc: JOE Attending Dr: Gabriela Olivier MD Ordering Physician: Nalini Quinones APRN, CUSTOMER ACCOUNT ADMINISTRATOR Date of Service: 01/21/25 Procedure(s): XR lumbar spine 6V w bending Accession Number(s): [id number] cc: Nalini Quinones APRN, CUSTOMER ACCOUNT ADMINISTRATOR; Hillary Greene CHEMICAL MANAGER EXAMINATION: XR LUMBOSACRAL SPINE CLINICAL INFORMATION: M54.16 [...] Manuel Oliveira MD 01/21/2025 03:27 PM EDT RP Dictated By: Juan Manuel Oliveira MD Signed By: <Electronically signed by Juan Manuel Oliveira MD in OV> 01/21/25 1527 DD/ 1500 TD/TT: 01/21/25 1509 Bioassayist: Procedure Note Donotuseinterpreter, Image - 01/21/[address] [address] XRay Report Signed Patient: Ruslan MasonMR#: [id number] : 1980Acct:[id number] Age/Sex: 44 / MADM Date: 01/21/25 Loc: HO.AUGUSTUSAY Attending Dr: Gabriela Olivier MD Ordering Physician: Nalini Quinones APRN, CUSTOMER ACCOUNT ADMINISTRATOR Date of Service: 01/21/25 Procedure(s): XR lumbar spine 6V w bending Accession Number(s): [id number] cc: Nalini Quinones APRN, CUSTOMER ACCOUNT ADMINISTRATOR; Hillary Greene CHEMICAL MANAGER EXAMINATION: XR LUMBOSACRAL SPINE CLINICAL INFORMATION: M54.16 [...] 01/21/25 1527 DD/ 1500 TD/TT: 01/21/25 1509 Bioassayist: [facility] External Provider IMG XR PROCEDURES Final Result * XR Sacroiliac Joints 3+ Views (01/21/2025 3:00 PM EDT) Anatomical Region Laterality Modality Sacroiliac joint, Pelvis Radiogr aphic Imaging 01/21/2025 3:00 PM EDT Narrative 01/21/2025 3:24 PM EDT [address] [address] XRay Report Signed Patient: Ruslan Mason MR#: [id number] : 1980 Acct:[id number] Age/Sex: 44 / M ADM Date: 01/21/25 Loc: JOE Attending Dr: Gabriela Olivier MD Ordering Physician: Nalini Quinones APRN, CNP Date of Service: 01/21/25 Procedure(s): XR sacroiliac joint min 3V Accession Number(s): [id number] cc: Nalini Quinones APRN, AMBROSE; Hillary Greene CHEMICAL MANAGER EXAMINATION: XR SACROILIAC JOINTS CLINICAL INFORMATION: M53.3 - Sacrococcygeal disorders, not elsewhere classified COMPARISON: None available. TECHNIQUE: AP and bilateral oblique views of the sacroiliac joints FINDINGS: SI joints are symmetrical without fusion, sclerosis, or erosions. No osteophytes are evident. XR/XR sacroiliac joint min 3V IMPRESSION: Unremarkable SI joints Electronically signed by: Juan Manuel Oliveira MD 01/21/2025 03:22 PM EDT RP Dictated By: Juan Manuel Oliveira MD Signed By: <Electronically signed by Juan Manuel Oliveira MD in OV> 01/21/25 1522 DD/ 1500 TD/TT: 01/21/25 1509 Bioassayist: Procedure Note Donotuseinterpreter, Image - 01/21/[address] [address] XRay Report Signed Patient: Ruslan MasonMR#: [id number] : 1980Acct:[id number] Age/Sex: 44 / MADM Date: 01/21/25 Loc: JOE Attending Dr: Gabriela Olivier MD Ordering Physician: Nalini Quinones APRN, CNP Date of Service: 01/21/25 Procedure(s): XR sacroiliac joint min 3V Accession Number(s): [id number] cc: Nalini Quinones APRN, AMBROSE; Hillary Greene EXAMINATION: XR SACROILIAC JOINTS CLINICAL INFORMATION: M53.3 - Sacrococcygeal disorders, not elsewhere classified COMPARISON: None available. TECHNIQUE: AP and bilateral oblique views of the sacroiliac joints FINDINGS: SI joints are symmetrical without fusion, sclerosis, or erosions. No osteophytes are evident. XR/XR sacroiliac joint min 3V IMPRESSION: Unremarkable SI joints Electronically signed by: Juan Manuel Oliveira MD 01/21/2025 03:22 PM EDT RP Dictated By: Juan Manuel Oliveira MD Signed By: <Electronically signed by Juan Manuel Oliveira MD in OV> 01/21/25 1522 DD/ 1500 TD/TT: 01/21/25 1509 Bioassayist: [facility] External Provider IMG XR PROCEDURES Final Result * XR Hand 3+Views Bilateral (01/21/2025 1:37 PM EDT) Anatomical Region Laterality Modality Upper Extremities, Hand Bilateral Radiogra phic Imaging 01/21/2025 1:37 PM EDT Narrative 01/21/2025 3:06 PM EDT [place] [address] XRay Report Signed Patient: Ruslan Mason MR#: [id number] : 1980 Acct:[id number] Age/Sex: 44 / M ADM Date: 01/21/25 Loc: HO.XRAY Attending Dr: Gabriela Olivier MD Ordering Physician: Gabrilea Brown MD Date of Service: 01/21/25 Procedure(s): XR Hand Bilat min 3v Accession Number(s): [id number] cc: Hillary Greene; Gabriela Brown MD Exam: [...] Manuel Oliveira MD 01/21/2025 03:03 PM EDT RP Dictated By: Juan Manuel Oliveira MD Signed By: <Electronically signed by Juan Manuel Oliveira MD in OV> 01/21/25 1503 DD/ 1337 TD/TT: 01/21/25 1400 Bioassayist: Procedure Note Donotuseinterpreter, Image - 01/21/2025 [place] [address] XRay Report Signed Patient: Ruslan MasonMR#: [id number] : 1980Acct:[id number] Age/Sex: 44 / MADM Date: 01/21/25 Loc: HO.XRAY Attending Dr: Gabriela Olivier MD Ordering Physician: Gabriela Brown MD Date of Service: 01/21/25 Procedure(s): XR Hand Bilat min 3v Accession Number(s): [id number] cc: Hillary Greene; Gabriela Brown MD Exam: [...] Manuel Oliveira MD 01/21/2025 03:03 PM EDT RP Dictated By: Juan Manuel Oliveira MD Signed By: <Electronically signed by Juan Manuel Oliveira MD in OV> 01/21/25 1503 DD/ 1337 TD/TT: 01/21/25 1400 Bioassayist: Gabriela Olivier MD IMG XR PROCEDURES Final [...] factors. LDL-C is now calculated using the Kirk-Violeta calculation, which is a validated novel method providing better accuracy than the Friedewald equation in the estimation of LDL-C. Kirk SS et al. SHOSHANA. 2013;310(19): 8111-1277 (http://education.Alcresta.com/faq/YSH461) Non-HDL Cholesterol 205(H) <130 mg/dL (calc) [facility] [...] Lipidol. 2015;9:129-169. 05/20/2021 1:06 PM EST Alisha Hsumaritza MENTAL RETARDATION NURSE LAB BLOOD ORDERABLES Final Res ult Performing Organization Address [facility] Co de Phone Number [facility] [address] [place] [address], * HEPATITIS C AB W/REFL TO HCV RNA, QN, PCR (05/14/2020 8:17 PM EST) HEPATITIS C ANTIBODY NON-REACT STEVEN NON-REACT STEVEN [facility] INDEX 0.02 <1.00 [facility] Comment: HCV antibody was non-reactive. There is no laboratory evidence of HCV infection. In most cases, no further action is required. However, if recent HCV exposure is suspected, a test for HCV RNA (test code 14477) is suggested. For additional information please refer to http://[employer].Kivivi/faq/PFP64o5 (This link is being provided for informational/ educational purposes only.) HEPATITIS C ANTIBODY NON-REACT STEVEN NON-REACT STEVEN [facility] INDEX 0.02 <1.00 [facility] Comment: HCV antibody was non-reactive. There is no laboratory evidence of HCV infection. In most cases, no further action is required. However, if recent HCV exposure is suspected, a test for HCV RNA (test code 44192) is suggested. For additional information please refer to http://[employer].Kivivi/faq/KQY09e1 (This link is being provided for informational/ educational purposes only.) 05/14/2020 8:17 PM EST us Taya Brown CHEMICAL MANAGER HISTORICAL/NON ORDERABLE LA BS Final Result Performing Organization Address [facility] Co de Phone Number [facility] [address] [place] [address], [place] * HIV 1/2 ANTIGEN/ANTIBODY,FOURTH GENERATION W/RFL (05/14/2020 [...] purpose. For additional information please refer to http://[employer].Kivivi/faq/DGJ764 (This link is being provided for informational/ [...] purpose. For additional information please refer to http://[employer].BAROnova/faq/SVE380 (This link is being provided for informational/ [...] purpose. For additional information please refer to http://education.Kivivi/faq/YKL386 (This link is being provided for informational/ educational purposes only.) The performance of this assay has not been clinically validated in patients less than 2 years old. 05/14/2020 8:17 PM EST Taya Brown [facility] LAB BLOOD ORDERABLES Final Result Performing Organization Address City/State/[facility] Co hi Phone Number [facility] [address] from Last 3 Months or Most Recently Relevant to Health Maintenance Insurance [employer] Care Teams Cleaner Signs Relationship Specialty Start Date End Date Hillary Greene FNP [address] [place] [address] PCP - General Family Medicine 12/09/22
== END 2025-02-07 11:11 | disposition home or self-care (01) ==
LOC: HO.PMC 10:50
PROVIDERS: PCP Registered Nurse; Visit Provider Registered Nurse Emergency
DX: R20.2 Paresthesia of skin (principal); M54.16 Radiculopathy, lumbar region
CPT/HCPCS: 99213

== ENCOUNTER → 2025-02-07 10:49 | Outpatient (BNVA) | payer MEDICAID, SELFPAY | PROVIDERS: PCP Registered Nurse; Visit Provider Registered Nurse Emergency | DX: Z71.2 Person consulting for explanation of examination or test findings (principal); R20.2 Paresthesia of skin; M54.16 Radiculopathy, lumbar region | CPT/HCPCS: 99212 ==

== ENCOUNTER 2025-03-09 21:27 | Emergency (ER) | payer OTHER, MEDICAID, SELFPAY ==
--- OUTSIDE RECORDS SUMMARY | 2025-03-05 10:30 | XMS_ITS | Encounter Summary ---
Author Organization [employer] Address [address] [place] [address] [place] [address] Care Team Providers Care Quality Cloth Tester Name Role Phone Hillary Greene Primary Care Provider [phone] Reason for Referral * Consultation (Routine) - Authorized Specialty Diagnoses / Procedures Referred By Ivon purvis Referred To Contact Orthopaedic Surgery Diagnoses Pain in both wrists Bilateral hand pain Hillary Greene FNP [address] [place] [address] Phone: tel: fax: Josefa Jimenez MD [address] [place] [address] Phone: tel: fax: Referral ID Status Reason Start Date Expiration Date Visits Requested Visits Authorized [id number] Authorized Specialty Services Required 03/05/2025 03/05/2026 6 6 Encounter Details Date Type Department Care Team (Latest Contact Info) Description 03/05/2025 10:30 AM EDT Office Visit [facility] [address] [place] [address] Hillary Greene FNP [address] [place], [place] [phone] Bilateral hand pain (Primary Dx); Pain in both wrists; Lumbar radiculopathy Social History Tobacco Use Types Packs/Day Years Used Date Smoking Tobacco: Former Cigarettes Smokeless Tobacco: Never Tobacco Cessation:Counseling Given: Not Answered Alcohol Use Standard Drinks/Week [...] AM EDT documented as of this encounter Last Filed Vital Signs Vital Sign Reading Time Taken Comments Blood Pressure 110/70 03/05/2025 10:36 AM EDT Pulse 70 03/05/2025 10:36 AM EDT Temperature 36.4 C (97.5 F) 03/05/2025 10:36 AM EDT Respiratory Rate 12 03/05/2025 10:36 AM EDT Oxygen Saturation 97% 03/05/2025 10:36 AM EDT Inhaled Oxygen Concentration - - Weight 73.3 kg (161 lb 9.6 oz) 03/05/2025 10:36 AM EDT Height - - Body Mass Index 26.89 01/21/2025 1:41 PM EDT documented in this encounter Patient Instructions * Patient Instructions* SOHA Charlton - 03/05/2025 10:30 AM EDT List of Local Eye Providers [facility] [address] [place], [place] [id number] Ages: 2 years old and above *Currently booking out 8-12 months [facility] [address] [place], [place] [phone] Ages: 3 years and above *Currently only accepting new patients with diabetes or eye-related medical conditions [facility] - Dr. Chávez [address] [place], [place] [phone] Ages: 6 years old and above [facility] [address] [phone] *Will fill the eye glasses prescription only (no exams or evaluations). Accepts [facility] Dr. Prasanth Rainey [address] [place], [place] Ages: 15 years old and below [facility] [address] [facility] 3rd Floor [place], [place] [phone] *Requires referral from PCP, does accept [facility] [address], [place] [phone] Ages: 7 years and above *Dr. Cornelius Speaks Chinese. Accepts [facility] [place] [address] [place], [place] [phone] Ages: 7 years and above *Dr. Cornelius Speaks Chinese. Accepts [facility] [address] [place] [address] Ages: 5 years and above [facility] [address] [place], [place] [phone] *Eye evaluations, but does not dispense glasses [facility] [address] [place] [address] Ages: 6 years and above [facility] [address] [place] [address] [facility] [address] [place] [address] [facility] [address] [place], [place] [phone] [facility] [address] [address] [place] [address] Ages: 2 years and above *Does not accept [place] [employer] [facility] [address] [place] [address] Ages: 5 years and above *Not currently accepting new patients documented in this encounter Progress Notes * SOHA Charlton - 03/05/2025 10:30 AM EDT Subjective Patient ID: Ruslan Mason is a 44 y.o. male who presents to the office for a follow up visit. HPI: - Last PCP visit: 12/12/22 Chronic low back pain: completed consult in November 2022 with [facility]. Recommended physical therapy, initiated on meloxicam, and discussed consideration of MBB PRN. Consult with [facility] Pain Management completed in January of 2025. Completed updated lumbar MRI (see below) and also recommended physical therapy to address SI joint dysfunction and chronic low back pain. Reviewed results of Lumbar MRI with specialist, and is now pending NCS/EMG lower extremity. Continues with moderate-severe low back pain that limits his ability to participate in iADLs. January 2025: Lumbar MRI 1. Multilevel degenerative disc and facet disease, as well as ligamentum flavum hypertrophy. 2. Mild multilevel canal stenoses. 3. Multilevel foraminal stenoses, worst at L3-L4 and L4-L5 where there are moderate foraminal stenoses. 4. Plain film correlation is recommended for numbering purposes prior to any lumbar spinal intervention. Hand/wrist pain: chronic pain in bilat hands w/ hx of multiple injuries. 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 Left hand: probable healed boxer's fracture. Expansile cortical lesion with central lucency involving the fifth proximal phalanx is probably posttraumatic but could represent a low-grade chondroid lesion. He has been engaged to OT therapy for the hands and possible tendonitis. Describes intermittent numbness/tingling in fingers. He previously completed a NCS/EMG 12/14/22 that demonstrated normal motor and sensory nerve conduction of BUE. Tobacco use: quit smoking 1.5 years ago Review of Systems Constitutional: Negative for chills and fever. HENT: Negative for congestion. Respiratory: Negative for shortness of breath. Cardiovascular: Negative for chest pain and palpitations. Gastrointestinal: Negative for diarrhea, nausea and vomiting. Musculoskeletal: Positive for arthralgias, back pain, gait problem and myalgias. Negative for jointswelling. Skin: Negative for rash. Neurological: Positive for numbness. Visit Vitals BP 110/70 Pulse 70 Temp 97.5 ??F (36.4 ??C) (Temporal) Resp 12 Wt 161 lb 9.6 oz (73.3 kg) SpO2 97% BMI 26.89 kg/m?? Smoking Status Former BSA 1.83 m?? Physical Exam Constitutional: General: He is not in acute distress. Appearance: Normal appearance. He is not ill-appearing. HENT: Head: Atraumatic. Cardiovascular: Rate and Rhythm: Normal rate and regular rhythm. Pulmonary: Effort: Pulmonary effort is normal. Breath sounds: Normal breath sounds. Musculoskeletal: General: Deformity present. Comments: Noted left hand chronic mild swelling of left thumb base at level of MTC joint. Tender topalpation. No increase in skin temp or erythema. Neurological: Mental Status: He is alert. 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 Left hand: probable healed boxer's fracture. Expansile cortical lesion with central lucency involving the fifth proximal phalanx is probably posttraumatic but could represent a low-grade chondroid lesion. Current Assessment & Plan - Cont with OT and symptomatic management (voltaren gel topical - aware not to combine with other NSAIDs) - Referral to [facility] Ortho hand specialist for further evaluation Relevant Medications lidocaine-prilocaine (Emla) 2.5-2.5 % cream Diclofenac Sodium 1 % gel Other Relevant Orders Referral to Orthopaedic Surgery Neuro Lumbar radiculopathy Overview January 2025: Lumbar MRI 1. Multilevel degenerative disc and facet disease, as well as ligamentum flavum hypertrophy. 2. Mild multilevel canal stenoses. 3. Multilevel foraminal stenoses, worst at L3-L4 and L4-L5 where there are moderate foraminal stenoses. 4. Plain film correlation is recommended for numbering purposes prior to any lumbar spinal intervention. - Specialists: PS&S - consult November 2022: rec for physical therapy, meloxicam, consideration of MBB [facility] Pain Management - consult January 2025. EMG lower extremity pending Current Assessment & Plan - No red flag symptoms today. Encouraged to cont with pharm and non-pharm tx modalities for pain control - Encouraged to follow up with physical therapy as scheduled - Cont with ibuprofen, flexeril, and lidocaine patches PRN. Reviewed med use and safety Other Visit Diagnoses Pain in both wrists Relevant Medications lidocaine-prilocaine (Emla) 2.5-2.5 % cream Diclofenac Sodium 1 % gel Other Relevant Orders Referral to Orthopaedic Surgery Follow up: 6 months, sooner PRN documented in this encounter Miscellaneous Notes * Assessment & Plan Note - SOHA Charlton - 03/06/2025 3:19 PM EDTAssociated Problem(s): Bilateral hand pain - Cont with OT and symptomatic management (voltaren gel topical - aware not to combine with other NSAIDs) - Referral to [facility] Ortho hand specialist for further evaluation * Assessment & Plan Note - SOHA Charlton - 03/06/2025 3:18 PM EDTAssociated Problem(s): Lumbar radiculopathy - No red flag symptoms today. Encouraged to cont with pharm and non-pharm tx modalities for pain control - Encouraged to follow up with physical therapy as scheduled - Cont with ibuprofen, flexeril, and lidocaine patches PRN. Reviewed med use and safety documented in this encounter Plan of Treatment Scheduled Referrals Name Type Priority Associated Diagnoses Order Schedule Referral to Orthopaedic Surgery Outpatient Referral Routine Pain in both wrists Bilateral hand pain Expected: 03/05/2025 (Approximate), Expires: 03/05/2026 documented as of this encounter Visit Diagnoses Diagnosis Bilateral hand pain- Primary Pain in both wrists Lumbar radiculopathy Thoracic or lumbosacral neuritis or radiculitis, unspecified documented in this encounter Additional Health Concerns Assessment Noted Time PHQ-9 Depression Total Score: 0 12/26/19 25 10:54 AM EDT documented as of this encounter Care Teams Quality Cloth Tester Relationship Specialty Start Date End Date Hillary Greene FNP [address] [place] [address] PCP - General Family Medicine 12/09/22 documented as of this encounter
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
[2025-03-09 22:01] VITALS: BP 120/00; BP 99/65; PULSE 68; PULSE 71; RESP 16; TEMP 36.8; O2SAT 95; O2SAT 99; BMI 27.3
[2025-03-09 22:09] VITALS: BP 106/65
--- OUTSIDE RECORDS SUMMARY | 2025-03-09 22:27 | XMS_ITS | Encounter Summary ---
Author Organization [employer] Address [address] [place] [address] [address] [place] [address] Care Team Providers Care Audit Consultant Name Role Phone Hillary Greene Primary Care Provider [phone] Reason for Visit * Reason Onset Date Comments Med Refill 03/05/2025 Encounter Details Date Type Department Care Team ([facility] st Contact Info) Description 03/05/[address] [facility] [address] [place], [place] [phone] Hillary Greene FNP [address] [place], [place] [phone] Social History Tobacco Use Types Packs/Day Years Used Date Smoking Tobacco: Former Cigarettes Smokeless Tobacco: Never Alcohol Use Standard [...] AM EDT documented as of this encounter Miscellaneous Notes * Telephone Encounter - Lanette Patel LPN - 03/05/2025 11:42 AM EDT Last seen 03/05/25. * Telephone Encounter - Lázaro Barron - 03/05/2025 11:37 AM EDT TC from pt requesting medication refill. Medications needing refill : cyclobenzaprine (Flexeril) 10 MG tablet ibuprofen 600 MG tablet To be sent to: [facility] - [place], [place] - [address] [place] [address] documented in this encounter Plan of Treatment Not on file documented as of this encounter Visit Diagnoses Not on filedocumented in this encounter Additional Health Concerns Assessment Noted Time PHQ-9 Depression Total Score: 0 12/26/19 10:54 AM EDT documented as of this encounter Care Teams Audit Consultant Relationship Specialty Start Date End Date Hillary Greene FNP [address] [place] [address] PCP - General Family Medicine 12/09/22 documented as of this encounter
--- OUTSIDE RECORDS SUMMARY | 2025-03-09 22:27 | XMS_ITS | Encounter Summary ---
Author Organization [employer] Address [address] [facility] 7 [place] [address] Care Team Providers Care Chip Machine Operator Name Role Phone Hillary Greene Primary Care Provider [phone] Reason for Visit * Reason Onset Date Comments chart prep 03/04/2025 Encounter Details Date Type Department Care Team ([facility] st Contact Info) Description 03/04/2025 Telephone [facility] [address] [place], [place] [phone] Hillary Greene FNP [address] [place], [place] [phone] chart prep Social History Tobacco Use Types Packs/Day Years [...] encounter Miscellaneous Notes * Telephone Encounter - Stephanie Razo [place] - 03/04/2025 11:56 AM EDT Chart Prep Labs: done Images: done Screenings: Not Applicable Vaccines due: Covid Due, Hep B Due, PCV20 Due, and Flu Due Referrals: Optometry appointment pending Overdue care gaps: Disability documented in this encounter Plan of Treatment Not on file documented as of this encounter Visit Diagnoses Not on filedocumented in this encounter Additional Health Concerns Assessment Noted Time PHQ-9 Depression Total Score: 0 12/26/19 25 10:54 AM EDT documented as of this encounter Care Teams Chip Machine Operator Relationship Specialty Start Date End Date Hillary Greene FNP [address] [place] [address] PCP - General Family Medicine 12/09/22 documented as of this encounter
--- OUTSIDE RECORDS SUMMARY | 2025-03-09 22:27 | XMS_ITS | Clinical Summary ---
Author Organization [employer] Address [address] [facility] 7t [place] [address] Care Team Providers Care Home Care Companion Name Role Phone Hillary Greene SOHA Primary Care Provider [phone] Allergies No known active allergies Medications lidocaine-manisha locaine (Emla) 2.5-2.5 % creamIndicati ons:Pain in both wrists APPLY TOPICALLY TO THE AFFECTED AREA(S) ONCE DIRECTED FOR 1 DOSE 01/22/20 25 Active Diclofenac Sodium 1 % gelIndication s:Pain in both wrists,Bilate ral hand pain Apply 1 Application topically if needed in the morning, at noon, in the evening, and at bedtime (hand pain). 50 g 2 03/05/20 25 Active lidocaine (Lidoderm) 5 % patch Apply 1 patch topically Once per day. Remove & discard patch within 12 hours or as directed by MD. 30 patch 2 03/05/20 25 Active cyclobenzapri ne (Flexeril) 10 MG tablet Take 1 tablet (10 mg) by mouth every 8 (eight) hours if needed for muscle spasms. 30 tablet 2 03/05/20 25 026 Active ibuprofen 600 MG tablet Take 1 tablet (600 mg) by mouth every 8 (eight) hours if needed (pain or fever). 90 tablet 2 03/05/20 25 Active ibuprofen 600 MG tablet TAKE 1 TABLET BY MOUTH 3 TIMES DAILY. 90 tablet 12/24/19 25 025 Discontinued(Re order (will not trigger notification to Pharmacy)) cyclobenzapri ne (Flexeril) 10 MG tablet Take 1 tablet (10 mg) by mouth 3 times daily for 10 days. 30 tablet 12/26/19 025 Discontinued(Re order (will not trigger notification to Pharmacy)) Diclofenac Sodium 1 % gelIndication s:Pain in both hands,Pain in both wrists Apply 1 Application topically if needed each day (hand pain). 50 g 01/22/20 25 025 Discontinued(Re order (will not trigger notification to Pharmacy)) Active Problems Problem Noted Date Diagnosed Date Lumbar radiculopathy 03/06/2025 Overview (03/06/2025): January 2025: Lumbar MRI 1. Multilevel degenerative [...] rec for physical therapy, meloxicam, [place] [facility] [place] - consult January 2025. EMG lower extremity pending Assessment & Plan (03/06/2025 3:18 PM EDT): - No red flag symptoms today. Encouraged to cont with pharm and non-pharm tx modalities for pain control - Encouraged to follow up with physical therapy as scheduled - Cont with ibuprofen, flexeril, and lidocaine patches PRN. 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 Left hand: probable healed boxer's fracture. Expansile cortical lesion with central lucency involving the fifth proximal phalanx is probably posttraumatic but could represent a low-grade chondroid lesion. Assessment & Plan (03/06/2025 3:19 PM EDT): - Cont with OT and symptomatic management (voltaren gel topical - aware not to combine with other NSAIDs) - [place] [facility] [place] for further evaluation Assessment & Plan (01/21/2025 9:35 PM EDT): [...] upcoming apt Night sweats 11/11/2022 Overweight 11/11/2022 Winded 11/11/2022 Resolved Problems Problem Noted Date Diagnosed Date Resolved Date Smokes 1 pack of cigarettes per day 11/11/2022 01/21/2025 Tobacco dependence syndrome 11/11/2022 03/06/2025 Encounters Date Type Department Care Team Description 03/05/2025 10:30 AM EDT Office Visit [facility] [address] [place] [address] Hillary Greene, SOHA Bilateral hand pain (Primary Dx); Pain in both wrists; Lumbar radiculopathy 03/05/2025 Telephone [facility] [address] [place] [address] Hillary Greene FNP Medication Question 03/05/2025 Refill [facility] [address] [place] [address] Hillary Greene FNP 03/05/2025 Travel 03/04/[address] [address] Hillary Greene FNP chart prep 02/27/[address] [address] Hillary Greene FNP Referral 02/26/2025 Travel 01/21/2025 1:30 PM EDT Office Visit [address] [address] Gabriela Brown MD Pain in both hands (Primary Dx); Pain in both wrists; Bilateral hand pain; Posttraumatic stress disorder; Left wrist tendinitis 01/21/2025 Orders Only [facility] External Provider, [facility] 01/21/2025 Results Follow-Up [address] [address] Gabriela Brown MD XR Hand 3+Views Bilateral 01/21/[address] [address] Gabriela Brown MD Durable Medical Equipment 01/21/2025 Travel 01/20/[address] [address] Gabriela Brown MD chart prep 01/18/2025 Travel 12/25/2024 10:45 AM EDT Telemedicine [facility] [address] [place] [address] Paulino Simpson MD Chronic bilateral low back pain with left-sided sciatica (Primary Dx) 12/25/2024 Travel 12/23/2024 Telephone [facility] [address] [place] [address] Hillary Greene FNP Nurse Triage 12/23/2024 Refill [facility] [address] [place] [address] Paulino Simpson MD from Last 3 Months Immunizations Immunization Administration [...] your housing situation today? I have cl javier 12/25/[address] you li [...] 9.6 oz) 03/05/2025 10:36 AM EDT Height 165.1 cm (5' 5 ) 01/21/2025 1:41 PM EDT Body Mass Index 26.89 01/21/2025 1:41 PM EDT Plan of Treatment Health Maintenance Due Date Last Done Comments Family Planning (PISQ) 1995 HPV Vaccines (1 - Male 3-dos e series) 1995 Hepatitis B Vaccines (1 of 3 - 19+ 3-dose series) 1999 COVID-19 Vaccine ( - 2023-2 5 season) 2024 05/02/2022, 12/10/2020, 11/02/2020 Influenza Vaccine (#1) 2025 , 08/27/2019, 05/18/2016 Depression Screening 12/25/2025 12/25/2024, 12/25/2024 SDOH Screening 12/25/2025 12/25/2024 Alcohol/Substance Use Screening 01/21/2026 01/21/2025 Disability Screening 03/05/2026 03/05/2025 Tobacco Screening 03/05/2026 03/05/2025 Lipid Panel 05/20/2026 05/20/2021, 12/10/2020, 05/14/2020 DTaP/Tdap/Td Vaccines (2 - T d or Tdap) 08/30/2029 08/30/2019 Zoster Vaccines (1 of 2) 2030 RSV Patients and Patients Aged 60 years or older (1 - 1-dose 75+ series) 2055 Pneumococcal Vaccine: Pediatrics (0 to 5 Years) and At-Risk Patients (6 to 49) Years Aged Out 05/18/2016 No longer eligible b ased on patient's age to complete this topic HIV Screening Completed 05/14/2020 Hepatitis C Screening [...] PM EDT Narrative 01/29/2025 5:45 PM EDT [address] [address] Magnetic Resonance Report Signed Patient: Ruslan Mason MR#: [id number] : 1980 Acct:[id number] Age/Sex: 44 / M ADM Date: 01/28/25 Loc: HO.MRI Attending Dr: Nalini Quinones APRN, CNP Ordering Physician: Nalini Quinones APRN, CNP Date of Service: 01/28/25 Procedure(s): MR lumbar spine wo con Accession Number(s): [id number] cc: Nalini Quinones APRN, CNP; Hillary Greene [...] in OV> 01/29/251744 DD/ 43 TD/TT: 01/29/251743 Career Technical Education Teacher: Procedure Note Donotuseinterpreter, Image - 01/29/2025 [place] [address] Magnetic Resonance Report Signed Patient: Ruslan Mason#: [id number] : 1980Acct:[id number] Age/Sex: 44 / MADM Date: 01/28/25 Loc: HO.MRI Attending Dr: Nalini Quinones APRN, CNP Ordering Physician: Nalini Quinones APRN, CNP Date of Service: 01/28/25 Procedure(s): MR lumbar spine wo con Accession Number(s): [id number] cc: Nalini Quinones APRN, CNP; Hillary Greene [...] in OV> 01/29/251744 DD/ 43 TD/TT: 01/29/251743 Career Technical Education Teacher: [facility] External Provider IMG MRI PROCEDURES Final Result * XR LUMBAR SPINE 6V W BENDING (01/21/2025 3:00 PM EDT) Anatomical Region Laterality Modality Abdomen Radiographic Nadira ging 01/21/2025 3:00 PM EDT Narrative 01/21/2025 3:30 PM EDT [address] [address] XRay Report Signed Patient: Ruslan Mason MR#: [id number] : 1980 Acct:[id number] Age/Sex: 44 / M ADM Date: 01/21/25 Loc: HOCHANI Attending Dr: Gabriela Olivier MD Ordering Physician: Nalini Quinones APRN, SCISSORS GRINDER Date of Service: 01/21/25 Procedure(s): XR lumbar spine 6V w bending Accession Number(s): [id number] cc: Nalini Quinones APRN, AMBROSE; Hillary Greene [...] 01/21/25 1527 DD/ 1500 TD/TT: 01/21/25 1509 Career Technical Education Teacher: Procedure Note Donotuseinterpreter, Image - 01/21/[address] [address] XRay Report Signed Patient: Lea Mason#: [id number] : 1980Acct:[id number] Age/Sex: 44 / MADM Date: 01/21/25 Loc: HO.AUGUSTUSAY Attending Dr: Gabriela Olivier MD Ordering Physician: Nalini Quinones APRN, AMBROSE Date of Service: 07/15/25 Procedure(s): XR lumbar spine 6V w bending Accession Number(s): [id number] cc: Nalini Quinones PEDICAB DRIVER, SCISSORS GRINDER; Hillary Greene FOOD PRODUCTS TESTER EXAMINATION: XR LUMBOSACRAL SPINE CLINICAL INFORMATION: M54.16 [...] 01/21/25 1527 DD/ 1500 TD/TT: 01/21/25 1509 Career Technical Education Teacher: [facility] External Provider IMG XR PROCEDURES Final Result * XR Sacroiliac Joints 3+ Views (01/21/2025 3:00 PM EDT) Anatomical Region Laterality Modality Sacroiliac joint, Pelvis Radiogr aphic Imaging 01/21/2025 3:00 PM EDT Narrative 01/21/2025 3:24 PM EDT [address] [address] XRay Report Signed Patient: Ruslan Mason MR#: [id number] : 1980 Acct:[id number] Age/Sex: 44 / M ADM Date: 01/21/25 Loc: JOE Attending Dr: Gbariela Olivier MD Ordering Physician: Nalini Quinones APRN, CNP Date of Service: 01/21/25 Procedure(s): XR sacroiliac joint min 3V Accession Number(s): [id number] cc: Nalini Quinones APRN, CNP; Hillary Greene FOOD PRODUCTS TESTER EXAMINATION: XR SACROILIAC JOINTS CLINICAL INFORMATION: M53.3 [...] 01/21/25 1522 DD/ 1500 TD/TT: 01/21/25 1509 Career Technical Education Teacher: Procedure Note Donotuseinterpreter, Image - 01/21/2025 [place] [address] XRay Report Signed Patient: Ruslan Mason#: [id number] : 1980Acct:[id number] Age/Sex: 44 / MADM Date: 01/21/25 Loc: JOE Attending Dr: Gabriela Olivier MD Ordering Physician: Nalini Quinones APRN, CNP Date of Service: 01/21/25 Procedure(s): XR sacroiliac joint min 3V Accession Number(s): [id number] cc: Nalini Quinones APRN, CNP; Hillary Greene FOOD PRODUCTS TESTER EXAMINATION: XR SACROILIAC JOINTS CLINICAL INFORMATION: M53.3 [...] 01/21/25 1522 DD/ 1500 TD/TT: 01/21/25 1509 Career Technical Education Teacher: [facility] External Provider IMG XR PROCEDURES Final Result * XR Hand 3+Views Bilateral (01/21/2025 1:37 PM EDT) Anatomical Region Laterality Modality Upper Extremities, Hand Bilateral Radiogra phic Imaging 01/21/2025 1:37 PM EDT Narrative 01/21/2025 3:06 PM EDT [place] [address] XRay Report Signed Patient: Ruslan Mason MR#: [id number] : 1980 Acct:[id number] Age/Sex: 44 / M ADM Date: 01/21/25 Loc: HO.AUGUSTUSAY Attending Dr: Gabriela Olivier MD Ordering Physician: Gabriela Brown MD Date of Service: 01/21/25 Procedure(s): XR Hand Bilat min 3v Accession Number(s): [id number] cc: Hillary Greene; Gabriela Brown MD Exam: [...] 01/21/25 1503 DD/ 1337 TD/TT: 01/21/25 1400 Career Technical Education Teacher: Procedure Note Donotuseinterpreter, Image - 01/21/[address] [address] XRay Report Signed Patient: Ruslan Mason#: [id number] : 1980Acct:[id number] Age/Sex: 44 / MADM Date: 01/21/25 Loc: HO.AUGUSTUSAY Attending Dr: Gabriela Olivier MD Ordering Physician: Gabriela Brown MD Date of Service: 01/21/25 Procedure(s): XR Hand Bilat min 3v Accession Number(s): [id number] cc: Hillary Greene; Gabriela Brown MD Exam: [...] 01/21/25 1503 DD/ 1337 TD/TT: 01/21/25 1400 Career Technical Education Teacher: [facility]iera[facility] Olivier MD IMG XR PROCEDURES Final Result [...] LDL-C. Kirk SS et al. SHOSHANA. 2013;310(19): 7987-0797 (http://education.ClearDATA.Geofusion/faq/DWJ373) Non-HDL Cholesterol 205(H) <130 mg/dL (calc) [facility]OUNDATION [...] 2015;9:129-169. 05/20/2021 1:06 PM EST us Alisha Rochelle SALES REPRESENTATIVE PUBLICATIONS LAB BLOOD ORDERABLES Final Res ult Performing Organization Address [facility]/ZIP Co de Phone Number [facility] [address] * HEPATITIS C AB W/REFL TO HCV RNA, QN, PCR (05/14/2020 8:17 PM EST) HEPATITIS C ANTIBODY NON-REACT STEVEN NON-REACT STEVEN [facility] INDEX 0.02 <1.00 [facility] Comment: HCV antibody was non-reactive. There is no laboratory evidence of HCV infection. In most cases, no further action is required. However, if recent HCV exposure is suspected, a test for HCV RNA (test code 08753) is suggested. For additional information please refer to http://Local Labs.Auspherix/faq/LQM19u3 (This link is being provided for informational/ educational purposes only.) HEPATITIS C ANTIBODY NON-REACT STEVEN NON-REACT STEVEN [facility] INDEX 0.02 <1.00 [facility] Comment: HCV antibody was non-reactive. There is no laboratory evidence of HCV infection. In most cases, no further action is required. However, if recent HCV exposure is suspected, a test for HCV RNA (test code 67045) is suggested. For additional information please refer to http://Local Labs.Auspherix/faq/JYT05i6 (This link is being provided for informational/ educational purposes only.) 05/14/2020 8:17 PM EST us Taya Brown FOOD PRODUCTS TESTER HISTORICAL/NON ORDERABLE LA BS Final Result Performing Organization Address City/[facility]/ZIP Co de Phone Number [facility] [address] [place] [address], * HIV 1/2 ANTIGEN/ANTIBODY,FOURTH GENERATION W/RFL (05/14/2020 [...] purpose. For additional information please refer to http://Local Labs.Auspherix/faq/BFU056 (This link is being provided for informational/ educational purposes only.) The performance of this assay has not been clinically validated in patients less than 2 years old. HIV-1/2 ANTIGEN AND ANTIBODIES, 4TH GENERATION W/ REFLEX NON-REACT STEVEN NON-REACT STEVEN [facility] Comment: HIV-1 antigen and [...] purpose. For additional information please refer to http://Local Labs.LiveRSVP.Geofusion/faq/EZH369 (This link is being provided for informational/ educational purposes only.) The performance of this assay has not been clinically validated in patients less than 2 years old. HIV-1/2 ANTIGEN AND ANTIBODIES, 4TH GENERATION W/ REFLEX NON-REACT STEVEN NON-REACT STEEVN [facility] Comment: HIV-1 antigen and [...] purpose. For additional information please refer to http://education.Auspherix/faq/PNP386 (This link is being provided for informational/ educational purposes only.) The performance of this assay has not been clinically validated in patients less than 2 years old. 05/14/2020 8:[address] Brown [facility] LAB BLOOD ORDERABLES Final Result Performing Organization Address City/State/[facility] Phone Number [facility] [address] from Last 3 Months or Most Recently Relevant to Health Maintenance Insurance Care Teams Home Care Companion Relationship Specialty Start Date End Date Hillary Greene FNP [address] [place] [address] PCP - General Family Medicine 12/09/22
--- OUTSIDE RECORDS SUMMARY | 2025-03-09 22:27 | XMS_ITS | Encounter Summary ---
Author Organization [employer] Address [address] [facility] 7t [place] [address] Care Team Providers Care Typewriter Repairer Name Role Phone Hillary Greene SOHA Primary Care Provider [phone] Encounter Details Date Type Department Care Team (Latest Contact Info) Description 03/05/2025 Travel Social History Tobacco Use Types Packs/Day [...] as of this encounter Plan of Treatment Not on file documented as of this encounter Visit Diagnoses Not on filedocumented in this encounter Additional Health Concerns Assessment Noted Time PHQ-9 Depression Total Score: 0 12/26/19 25 10:54 AM EDT documented as of this encounter Care Teams Typewriter Repairer Relationship Specialty Start Date End Date Hillary Greene FNP [address] [place] [address] PCP - General Family Medicine 12/09/22 documented as of this encounter
--- OUTSIDE RECORDS SUMMARY | 2025-03-09 22:27 | XMS_ITS | Encounter Summary ---
Author Organization [employer] Address [address] [place] [address] [address] [place] [address] Care Team Providers Care Clockmaker Name Role Phone Zaynab Rasmussen Primary Care Provider [phone] Reason for Visit * Reason Onset Date Comments Medication Question 03/05/2025 Encounter Details Date Type Department Care Team ([facility] Contact Info) Description 03/05/2025 Telephone [facility] [address] [place], [place] [phone] Zaynab Rasmussen FNP [address] [place], [place] [phone] Medication Question Social History Tobacco Use Types Packs/Day Years [...] as of this encounter Miscellaneous Notes * Addendum Note - SOHA Charlton - 03/05/2025 12:13 PM EDTAddended by: ZAYNAB RASMUSSEN on: 03/05/2025 12:13 PM Modules accepted: Orders * Telephone Encounter - SOHA Charlton - 03/05/2025 12:12 PM EDT Prescriptions sent to [facility] pharmacy, thanks! * Telephone Encounter - Joann Tenorio RN - 03/05/2025 11:59 AM EDT TC to pt. Pt states he had appt with PCP and she mentioned lidocaine patches but there are none at the pharmacy. He would also like refills of his Flexeril and ibuprofen if she is willing to send it.RN will send a message to the provider. Pt verbalized understanding and agreement with the plan of care. * Telephone Encounter - Lázaro Barron - 03/05/2025 11:39 AM EDT Tc from pt requesting a new script for lidocaine patches Contact pt at [phone] documented in this encounter Plan of Treatment Not on file documented as of this encounter Visit Diagnoses Not on filedocumented in this encounter Additional Health Concerns Assessment Noted Time PHQ-9 Depression Total Score: 0 12/26/19 25 10:54 AM EDT documented as of this encounter Care Teams Clockmaker Relationship Specialty Start Date End Date Zaynab Rasmussen FNP [address] [place] [address] PCP - General Family Medicine 12/09/22 documented as of this encounter
--- OUTSIDE RECORDS SUMMARY | 2025-03-09 22:27 | XMS_ITS | Encounter Summary ---
Author Organization [employer] Address [address] [place] [address] 7 [place] [address] Care Team Providers Care Ditch Cleaner Name Role Phone DaisyHillary mcpherson DOG OR HORSE RACING OFFICIAL Primary Care Provider [phone] Encounter Details Date Type Department Care Team ([facility] st Contact Info) Description 01/21/2025 Results Follow-Up [facility] [address] [place] [address] Gabriela Brown MD [address] [place] [address] XR Hand 3+Views Bilateral Social History Tobacco Use Types Packs/Day Years [...] AM EDT documented as of this encounter Functional Status * Over the last 2 weeks, how often have you been bothered by any of the following problems? Question Answer Date of Assessment Author Feeling nervous, anxious, or on edge 3 01/21/2025 1:43 PM EDT Stephanie Razo MA Not being able to stop or co ntrol worrying 0 01/21/2025 1:43 PM EDT Stephanie Razo MA Worrying too much about diff erent things 1 01/21/2025 1:43 PM EDT Stephanie Razo MA Trouble relaxing 1 01/21/2025 1:43 PM EDT Stephanie Herrmann MA Being so restless that it is hard to sit still 0 01/21/2025 1:43 PM EDT Stephanie Razo MA Becoming easily annoyed or irritable 1 01/21/2025 1:43 PM EDT Stephanie Razo MA Feeling afraid as if somethi ng awful might happen 0 01/21/2025 1:43 PM EDT Stephanie Razo MA ADOLFO-7 Total Score 6 01/21/2025 1:43 PM EDT Stephanie Razo MA documented as of this encounter Miscellaneous Notes * Result Encounter Note - Gabriela Olivier MD - 01/21/2025 3:32 PM EDT As in note from today documented in this encounter Plan of Treatment Not on file documented as of this encounter Visit Diagnoses Not on filedocumented in this encounter Additional Health Concerns Assessment Noted Time PHQ-9 Depression Total Score: 0 12/26/19 25 10:54 AM EDT documented as of this encounter Care Teams Ditch Cleaner Relationship Specialty Start Date End Date Hillary Greene FNP [address] [place] [address] PCP - General Family Medicine 12/09/22 documented as of this encounter
[2025-03-10 00:32] VITALS: BP 90/62; PULSE 60; RESP 16; TEMP 36.7; O2SAT 96
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
[2025-03-10 01:43] VITALS: BP 118/76; PULSE 60; RESP 18; TEMP 36.6; O2SAT 97
== END 2025-03-10 01:44 | disposition home or self-care (01) ==
PROVIDERS: Emergency Provider Emergency Medicine
DX: S13.4XXA Sprain of ligaments of cervical spine, initial encounter (principal); S16.1XXA Strain of muscle, fascia and tendon at neck level, initial encounter; V49.88XA Car occupant (driver) (passenger) injured in other specified transport accidents, initial encounter; Y93.89 Activity, other specified; Y92.488 Other paved roadways as the place of occurrence of the external cause; Y99.8 Other external cause status
CPT/HCPCS: 70450; 72125; 99284

== ENCOUNTER → 2025-03-09 22:46 | Outpatient (BNV) | payer MEDICAID, SELFPAY | PROVIDERS: Emergency Provider Emergency Medicine; Visit Provider Radiology Diagnostic Radiology | DX: M54.2 Cervicalgia (principal); R51.9 Headache, unspecified | CPT/HCPCS: 70450; 72125 ==

== ENCOUNTER 2025-03-18 13:48 | Outpatient (RCR) | payer MEDICAID, SELFPAY | END 2025-04-18 07:21 | disposition home or self-care (01) | LOC: HO.OT 13:48 | PROVIDERS: PCP Registered Nurse; Visit Provider Student in an Organized Health Care Education/Training Program | DX: M25.531 Pain in right wrist (principal); M25.532 Pain in left wrist; M79.641 Pain in right hand; M79.642 Pain in left hand | CPT/HCPCS: 97110; 97140; 97165 ==

== ENCOUNTER 2025-04-16 10:10 | Outpatient (REF) | payer OTHER, SELFPAY ==
--- NOTE | 2025-04-16 10:13 | EMG_ITS ---
Chief complaint: Chronic right-sided back and leg pain, occasional numbness on leg Reason for referral: Evaluate for radiculopathy Referred by: Nalini Dao NP Procedure done: Right lower extremity NCS/EMG Precautions and/or limitations: None The limb temperature was monitored continuously and remained between 32-36 degrees C during the performance of the NCS. Nerve Conduction Studies Anti Sensory Summary Table ?Stim Site NR Onset (ms) Norm Onset (ms) Peak (ms) Norm Peak (ms) O-P Amp (?V) Norm O-P Amp Site1 Site2 Delta-0 (ms) Dist (cm) David (m/s) Norm David (m/s) Right Sural Anti Sensory (Lat Mall) Calf ? 3.1 3.7 <4.0 6.0 >5.0 Calf Lat Mall 3.1 14.0 45 Motor Summary Table ?Stim Site NR Onset (ms) Norm Onset (ms) O-P Amp (mV) Norm O-P Amp iAmp (mV) Amp (1st) (%) Site1 Site2 Delta-0 (ms) Dist (cm) David (m/s) Norm David (m/s) Right Peroneal Motor (Ext Dig Brev) Ankle ? 3.8 <4.0 6.9 >2.5 8.8 100.0 Ankle Ext Dig Brev 3.8 0.0 B Fib ? 10.3 6.2 8.2 89.9 B Fib Ankle 6.5 30.0 46 >40 Poplt ? 11.6 6.1 8.3 88.4 Poplt B Fib 1.3 5.5 42 >40 Right Tibial Motor (Abd Jenkins Brev) Ankle ? 3.8 <5 11.0 >2.5 15.1 100.0 Ankle Abd Jenkins Brev 3.8 0.0 Knee ? 12.0 8.4 10.5 76.4 Knee Ankle 8.2 37.0 45 >40 EMG ?Side Muscle Nerve Root Ins Act Fibs Psw Amp Dur Poly Recrt Int Pat Comment Right AbdHallucis MedPlantar S1-2 Nml Nml Nml Nml Nml 0 Nml Complete Right AntTibialis Dp Br Peron L4-5 Nml Nml Nml Nml Nml 0 Nml Complete Right PostTibialis Tibial L5, S1 Nml Nml Nml Nml Nml 0 Nml Complete Right MedGastroc Tibial S1-2 Nml Nml Nml Nml Nml 0 Nml Complete Right VastusMed Femoral L2-4 Nml Nml Nml Nml Nml 0 Nml Complete FINDINGS: All motor and sensory nerves tested showed normal latencies, amplitudes and conduction velocities. Concentric needle EMG was performed in selected muscles of the right lower extremity. Study did not reveal signs of electric abnormalities as shown in the table above. IMPRESSION: 1. This is a normal study. 2. There is no electrodiagnostic evidence for peroneal neuropathy, tibial neuropathy, lumbosacral plexopathy, lumbar radiculopathy, or peripheral neuropathy. Thank you for your kind referral. Enid Trejo MD, FLAQUITO Board Certified, [place] Board [employer] and Rehabilitation (ABPMR) Board Certified, [place] Board of Electrodiagnostic Medicine (ABEM) CODIN [id number] MTDD
== END 2025-04-16 10:11 | disposition home or self-care (01) ==
LOC: HO.NEURO 10:10
PROVIDERS: PCP Registered Nurse; Visit Provider Registered Nurse Emergency
DX: R20.2 Paresthesia of skin (principal); M54.16 Radiculopathy, lumbar region
CPT/HCPCS: 95886; 95908

== ENCOUNTER → 2025-04-16 10:13 | Outpatient (BNV) | payer OTHER, SELFPAY | PROVIDERS: PCP Registered Nurse; Visit Provider Physical Medicine & Rehabilitation | DX: M54.9 Dorsalgia, unspecified (principal); M79.604 Pain in right leg; R20.2 Paresthesia of skin | CPT/HCPCS: 95886; 95908 ==

== ENCOUNTER 2025-04-25 11:36 | Outpatient (AMB) | payer OTHER, SELFPAY ==
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
[2025-04-25 11:57] VITALS: BMI 27.3
--- OUTSIDE RECORDS SUMMARY | 2025-04-25 14:26 | XMS_ITS | Encounter Summary ---
Author Organization [employer] Address [address] [facility] [facility] [address] [place] [address] Care Team Providers Care Boarding Specialist Name Role Phone Hillary Greene Primary Care Provider [phone] Reason for Visit * Reason Onset Date Comments Med Refill 04/21/2025 Encounter Details Date Type Department Care Team (Late st Contact Info) Description 04/21/2025 Refill [facility] [address] [place] [address] Hillary Greene FNP [address] [place], [place] [phone] Pain in both wrists; Bilateral hand pain Social History Tobacco Use Types Packs/Day Years [...] Care Team (Late st Contact Info) Description 05/09/2025 11:15 AM EDT Office Visit [facility] [address] [place] [address] Hillary Greene FNP [address] [place] [address] 08/26/2025 9:00 AM EST Office Visit [facility] OPTOM[facility] [address] [place] [address] Tarka, Anahy, OD [address] [place] [address] documented as of this encounter Visit Diagnoses Diagnosis Pain in both wrists Bilateral hand pain documented in this encounter Additional Health Concerns Assessment Noted Time PHQ-9 Depression Total Score: 0 12/26/19 25 10:54 AM EDT documented as of this encounter Care Teams Boarding Specialist Relationship Specialty Start Date End Date Hillary Greene FNP [address] [place] [address] PCP - General Family Medicine 12/09/22 documented as of this encounter
--- OUTSIDE RECORDS SUMMARY | 2025-04-25 14:26 | XMS_ITS | Encounter Summary ---
Author Organization [employer] Address [address] [facility] [address] [place] [address] Care Team Providers Care Computer Game Tester Name Role Phone Hillary Greene Primary Care Provider [phone] Encounter Details Date Type Department Care Team ([facility] Contact Info) Description 04/09/2025 Orders Only [facility] PEDS [address] [place], [place] [phone] Hillary Greene FNP [address] [place], [place] [phone] Social History Tobacco Use Types Packs/Day Years [...] Description 05/09/2025 11:15 AM EDT Office Visit [facility] PEDS [address] [place] [address] Hillary Greene FNP [address] [place] [address] 08/26/2025 9:00 AM EST Office Visit [facility] OPTOMETRY [address] [place] [address] TarkaAnahy, OD [address] [place] [address] documented as of this encounter Visit Diagnoses Not on filedocumented in this encounter Additional Health Concerns Assessment Noted Time PHQ-9 Depression Total Score: 0 12/26/19 25 10:54 AM EDT documented as of this encounter Care Teams Computer Game Tester Relationship Specialty Start Date End Date Hillary Greene FNP [address] [place] [address] PCP - General Family Medicine 12/09/22 documented as of this encounter
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
--- OUTSIDE RECORDS SUMMARY | 2025-04-25 14:26 | XMS_ITS | Clinical Summary ---
Author Organization [facility] Address [address] [place] [address] Phone Care Team Providers Care Laminating Press Operator Name Role Phone Rosette Morgan DIALYSIS CLINICAL MANAGER Unavailable Medications methocarbamoL (ROBAXIN) 750 MG tablet Take 1,500 mg by mouth every 8 (eight) hours as needed. 03/10/2025 Active ibuprofen (ADVIL,MOTRIN) 600 MG tablet 03/05/2025 Activ e cyclobenzaprine (FLEXERIL) 10 MG tablet Take 10 mg by mouth every 8 (eight) hours as needed. 03/05/2025 Active lidocaine (LIDODERM) 5 % Apply 1 patch topically. 03/05/2025 Active meloxicam (MOBIC) 15 MG tablet 12/25/2024 Active Active Problems Problem Noted Date Diagnosed Date Anxiety state 04/04/2025 Chronic bilateral low back pain without sciatica 04/04/2025 Encounters Date Type Department Care Team Description 04/04/2025 11:45 AM EDT Telemedicine [facility] [address] [place] [address] Rosette Morgan NP Anxiety state (Primary Dx); Chronic bilateral low back pain without sciatica from Last 3 Months Social History Tobacco Use Types Packs/Day Years Used Date Smoking Tobacco: Never Assessed Education Answer Date Recorded Are you interested in more education? Not on christiano e 04/03/2025 Are you concerned about learning? Not on file 04/03/2025 No 04/03/2025 No 04/03/2025 Digital Access Answer Date Recorded No 04/03/2025 No 04/03/2025 Reliable internet access at home? Not on file 04/03/2025 Device with a working camera? Not on file Sex and Gender Information Value Date Recorded Sex Assigned at Male 04/02/2025 9:34 PM EDT Legal Sex Male 9:30 PM EDT Gender Identity Male 04/02/2025 9:34 PM EDT Sexual Orientation Asexual 04/02/2025 9: 34 PM EDT Plan of Treatment Upcoming Encounters Date Type Department Care Team (Late st Contact Info) Description 05/09/2025 11:45 AM EDT Telemedicine [facility] [address] [place] [address] Rosette Morgan NP [address] [facility] [address] [place] [address] [email or web address] Health Maintenance Due Date Last Done Comments DEPRESSION SCREENING 1992 SMOKING Hx and SMOKELESS TOB ACCO SCREENING 1993 HEPATITIS C SCREENING 1998 HIV ONE-TIME SCREENING (18-6 5 YEARS) 1998 INFLUENZA VACCINE (#1) 2025 COVID-19 VACCINE (1 - 2024-2 6 season) 2025 LIPID PANEL 05/20/2026 05/20/2021 Adult Td,Tdap Booster 08/30/2029 08/30/2019 PNEUMOCOCCAL VACCINES (0-49 years) Aged Out 2015 No longer eligible based on patient's age to complete this topic HEPATITIS A VACCINES Aged Out No long er eligible based on patient's age to complete this topic HIB VACCINES Aged Out No longer eligi ble based on patient's age to complete this topic MENINGOCOCCAL VACCINES (ACWY) Aged Out No longer eligible based on patient's age to complete this topic MENINGOCOCCAL VACCINES (B) Aged Out N o longer eligible based on patient's age to complete this topic Medical Devices Not [place] [id number] [facility] C3 ACO Care Teams Laminating Press Operator Relationship Specialty Start Date End Date Rosette Morgan NP [address] [place] [address] [email or web address] Nurse Practitioner 04/04/25 Additional Source Comments The information contained in this document represents components of the legal health record. It is not the complete legal health record.[facility]
--- OUTSIDE RECORDS SUMMARY | 2025-04-25 14:26 | XMS_ITS | Encounter Summary ---
Author Organization [employer] Address [address] [place] [address] 7 [place] [address] Care Team Providers Care Dress Marker Name Role Phone Hillary Greene Primary Care Provider [phone] Reason for Visit * Reason Comments Med Refill Encounter Details Date Type Department Care Team ([facility] Contact Info) Description 04/20/2025 Refill [facility] [address] [place], [place] [phone] Hillary Greene FNP [address] [place], [place] [phone] Social History Tobacco Use Types Packs/Day Years [...] your housing situation today? I have cl herrrea 12/25/[address] you li [...] Description 05/09/2025 11:15 AM EDT Office Visit [facility] [address] [place] [address] Hillary Greene FNP [address] [place] [address] 08/26/2025 9:00 AM EST Office Visit [facility] OPT[facility]ETRY [address] [place] [address] TarkaAnahy, OD [address] [place] [address] documented as of this encounter Visit Diagnoses Not on filedocumented in this encounter Additional Health Concerns Assessment Noted Time PHQ-9 Depression Total Score: 0 12/26/19 25 10:54 AM EDT documented as of this encounter Care Teams Dress Marker Relationship Specialty Start Date End Date Hillary Greene FNP [address] [place] [address] PCP - General Family Medicine 12/09/22 documented as of this encounter
--- OUTSIDE RECORDS SUMMARY | 2025-04-25 14:26 | XMS_ITS | Encounter Summary ---
Author Organization [employer] Address [address] [facility] [address] [place] [address] Care Team Providers Care Ocean Export Coordinator Name Role Phone Hillary Greene Primary Care Provider [phone] Reason for Visit * Reason Onset Date Comments Med Refill 03/25/2025 Encounter Details Date Type Department Care Team (Late st Contact Info) Description 03/25/2025 Refill [facility] [address] [place] [address] Hillary Greene FNP [address] [place], [place] [phone] Pain in both wrists; Bilateral hand pain [...] Description 05/09/2025 11:15 AM EDT Office Visit [facility] [address] [place] [address] Hillary Greene FNP [address] [place] [address] 08/26/2025 9:00 AM EST Office Visit [facility] [address] [place] [address] Tarka, Anahy, OD [address] [place] [address] documented as of this encounter Visit Diagnoses Diagnosis Pain in both wrists Bilateral hand pain documented in this encounter Additional Health Concerns Assessment Noted Time PHQ-9 Depression Total Score: 0 12/26/19 25 10:54 AM EDT documented as of this encounter Care Teams Ocean Export Coordinator Relationship Specialty Start Date End Date Hillary Greene FNP [address] [place] [address] PCP - General Family Medicine 12/09/22 documented as of this encounter
== END 2025-04-25 12:27 | disposition home or self-care (01) ==
LOC: HO.HOS 11:37
PROVIDERS: PCP Registered Nurse
DX: M20.002 Unspecified deformity of left finger(s) (principal)
CPT/HCPCS: 99203

== ENCOUNTER 2025-04-29 12:36 | Outpatient (AMB) | payer OTHER, SELFPAY ==
[2025-04-29 12:51] VITALS: BMI 26.6
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
--- OUTSIDE RECORDS SUMMARY | 2025-04-29 16:05 | XMS_ITS | Clinical Summary ---
Author Organization [facility] Address [address] [place] [address] Phone Care Team Providers Care Supervisor Mechanic Boilermaking Name Role Phone Rosette Morgan ADVANCED DEVELOPER Unavailable [phone] Medications methocarbamoL (ROBAXIN) 750 MG tablet Take [...] 11:45 AM EDT Telemedicine [facility] [address] [place] [address] Rosette Morgan NP Anxiety state (Primary Dx); [...] 11:45 AM EDT Telemedicine [facility] [address] [place] [address] Rosette Morgan NP [address] [facility] [address] [place] [address] [email or web address] Maintenance Due Date Last Done Comments [...] Not on [place] [id number] [facility] C3 ACO Care Teams Supervisor Mechanic Boilermaking Relationship Specialty Start Date End Date Rosette Morgan NP [address] [place] [phone] [email or web address] Nurse Practitioner 04/04/25 Additional Source Comments The information contained in this document represents components of the legal health record. It is not the complete legal health record.[facility]
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
--- OUTSIDE RECORDS SUMMARY | 2025-04-29 16:05 | XMS_ITS | Encounter Summary ---
Author Organization [employer] Address [address] [facility] 7 [place] [address] Care Team Providers Care Histology Assistant Name Role Phone Hillary Greene Primary Care Provider [phone] Reason for Visit * Reason Onset Date Comments Med Refill 03/25/2025 Encounter Details Date Type Department Care Team (Late st Contact Info) Description 03/25/2025 Refill [facility] MEDICINE [address] [place] [address] Hillary Greene FNP [address] [place], [place] [phone] Pain in both wrists; Bilateral hand pain [...] Description 05/09/2025 11:15 AM EDT Office Visit [facility] CHC MED & PEDS [address] [place] [address] Hillary Greene FNP [address] [place] [address] 08/26/2025 9:00 AM EST Office Visit [facility] OPTOMETRY [address] [place] [address] Tarka, Anahy, OD [address] [place] [address] documented as of this encounter Visit Diagnoses Diagnosis Pain in both wrists Bilateral hand pain documented in this encounter Additional Health Concerns Assessment Noted Time PHQ-9 Depression Total Score: 0 12/26/19 25 10:54 AM EDT documented as of this encounter Care Teams Histology Assistant Relationship Specialty Start Date End Date Hillary Greene FNP [address] [place] [address] PCP - General Family Medicine 12/09/22 documented as of this encounter
--- OUTSIDE RECORDS SUMMARY | 2025-04-29 16:05 | XMS_ITS | Encounter Summary ---
Author Organization [employer] Address [address] [facility] 7 [place] [address] Care Team Providers Care Instrumentation Manager Name Role Phone Hillary Greene Primary Care Provider [phone] Encounter Details Date Type Department Care Team ([facility] Contact Info) Description 04/09/2025 Orders Only [facility] CHC MED & PEDS [address] [place], [place] [phone] Hillary Greene FNP [address] [place], [place] [phone] Social History Tobacco Use Types Packs/Day Years [...] Description 05/09/2025 11:15 AM EDT Office Visit [facility] CHC MED & PEDS [address] [place] [address] Hillary Greene FNP [address] [place] [address] 08/26/2025 9:00 AM EST Office Visit [facility] OPTOMETRY [address] [place] [address] Anahy Erickson, OD [address] [place] [address] documented as of this encounter Procedures Procedure Name Priority Date/Time Associated Diagnosis Comments XR HAND 3+ VIEWS LEFT Routine 04/29/2025 12:40 PM EDT documented in this encounter Results * XR Hand 3+ Views Left (04/29/2025 12:40 PM EDT) Anatomical Region Laterality Modality Upper Extremities, Hand Left Radiogra phic Imaging 04/29/2025 12:4 0 PM EDT Narrative 04/29/2025 2:57 PM EDT [facility] [address] [place] [address] XRay Report Signed Patient: Ruslan Mason MR#: [id number] : 1980 Acct:[id number] Age/Sex: 44 / M ADM Date: 04/29/25 Loc: HO.HOSX Attending Dr: oJsefa Jimenez MD Ordering Physician: Josefa Jimenez MD Date of Service: 04/29/25 Procedure(s): XR hand LT min 3V Accession Number(s): [id number] cc: Hillary GreeneP; Josefa Jimenez MD Reason for Exam: M79.642 [...] by Gabe Patel MD in OV> 04/29/25 145 DD/ 1240 TD/TT: 04/29/25 1243 [place] Operator: LUDIN Procedure Note Donotuseinterpreter, Image - 04/29/2025 [facility] [address] [place] [address] Drive [address] [place] [address] XRay Report Signed Patient: Ruslan MasonMR#: [id number] : 1980Acct:[id number] Age/Sex: 44 / MADM Date: 04/29/25 Loc: HO.HOSX Attending Dr: Josefa Jimenez MD Ordering Physician: Josefa Jimenez MD Date of Service: 04/29/25 Procedure(s): XR hand LT min 3V Accession Number(s): [id number] cc: Hillary Greene; Josefa Jimenez MD Reason [...] 04/29/25 1455 DD/ 1240 TD/TT: 04/29/25 1243 [place] Operator: LUDIN [facility] External Provider IMG XR PROCEDURES Final Result documented in this encounter Visit Diagnoses Not on filedocumented in this encounter Additional Health Concerns Assessment Noted Time PHQ-9 Depression Total Score: 0 12/26/19 10:54 AM EDT documented as of this encounter Care Teams Instrumentation Manager Relationship Specialty Start Date End Date Hillary Greene FNP [address] [place] [address] PCP - General Family Medicine 12/09/22 documented as of this encounter
== END 2025-04-29 13:34 | disposition home or self-care (01) ==
LOC: HO.HOS 12:36
PROVIDERS: PCP Registered Nurse; Visit Provider Orthopaedic Surgery
DX: M19.042 Primary osteoarthritis, left hand (principal); M20.002 Unspecified deformity of left finger(s); R20.0 Anesthesia of skin; R20.2 Paresthesia of skin; M18.12 Unilateral primary osteoarthritis of first carpometacarpal joint, left hand
CPT/HCPCS: 99204

== ENCOUNTER 2025-04-29 12:36 | Outpatient (REF) | payer OTHER, SELFPAY ==
--- NOTE | ~2025-04-29 | XR_ITS ---
EXAMINATION: XR HAND, LEFT CLINICAL INFORMATION: M79.642 - Pain in left hand COMPARISON: X-ray 01/21/2025 TECHNIQUE: PA, lateral, and oblique views of the left hand. FINDINGS: Redemonstrated is a lucent focus in the medial aspect of the distal fifth proximal phalanx. 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 There is flexion at the fifth PIP joint, with marginal osteophytes, and apparent joint space narrowing.. Redemonstrated volar angulation deformity of the fifth metacarpal neck, from healed remote fracture. Severe first CMC arthritis. No abnormal soft tissue calcification. No erosions seen. XR/XR hand LT min 3V IMPRESSION: * Fifth proximal phalanx findings, could be related to prior trauma. Component of osseous lesion this region cannot be excluded. No significant interval changes compared to prior. * Fifth PIP joint space narrowing/degenerative changes. * Severe first CMC arthritis. Electronically signed by: Gabe Patel MD 04/29/2025 02:55 PM EDT
== END 2025-04-29 12:37 | disposition home or self-care (01) ==
LOC: HO.HOSX 12:36
PROVIDERS: PCP Registered Nurse; Visit Provider Orthopaedic Surgery
DX: M19.042 Primary osteoarthritis, left hand (principal); M18.12 Unilateral primary osteoarthritis of first carpometacarpal joint, left hand; M20.002 Unspecified deformity of left finger(s); R20.2 Paresthesia of skin
CPT/HCPCS: 73130

== ENCOUNTER → 2025-04-29 12:40 | Outpatient (BNV) | payer OTHER, SELFPAY | PROVIDERS: PCP Registered Nurse; Visit Provider Radiology Diagnostic Ultrasound | DX: M18.12 Unilateral primary osteoarthritis of first carpometacarpal joint, left hand (principal) | CPT/HCPCS: 73130 ==

== ENCOUNTER 2025-04-30 11:37 | Outpatient (REF) | payer OTHER, SELFPAY ==
--- OUTSIDE RECORDS SUMMARY | 2025-05-01 14:49 | XMS_ITS | Clinical Summary ---
Author Organization [facility] Address [address] [place] [address] Phone Care Team Providers Care Signal Engineer Name Role Phone Rosette Morgan [employer] Unavailable [phone] Medications methocarbamoL (ROBAXIN) 750 MG tablet [...] 11:45 AM EDT Telemedicine [facility] [address] [place] [address] Rosette Morgan NP Anxiety state (Primary Dx); [...] 11:45 AM EDT Telemedicine [facility] [address] [place] [address] Rosette Morgan NP [address] [facility] [address] [place] [address] [email or web address] Due Date Last Done Comments [...] Not [place] [address] [facility] [employer] Care Teams Signal Engineer Relationship Specialty Start Date End Date Rosette Morgan NP [address] [place] [address] [email or web address] Nurse Practitioner 04/04/25 Additional Source Comments The information contained in this document represents components of the legal health record. It is not the complete legal health record.[facility]
== END 2025-04-30 11:38 | disposition home or self-care (01) ==
LOC: HO.HOSX 11:37
PROVIDERS: Visit Provider Orthopaedic Surgery
DX: Z13.89 Encounter for screening for other disorder (principal)

== ENCOUNTER 2025-04-30 13:59 | Outpatient (RCR) | payer MEDICAID, SELFPAY ==
--- NOTE | 2025-05-09 08:53 | MHC.PT.DC ---
[facility] [place] Office [place] Office [place] Office [address] Silvia Gutierrez [address] [phone] F: [phone] F: [phone] F: [phone] F: [phone] Physical Therapy Discharge Report Diagnosis: LOW BACK PAIN (KP) Date of Surgery: Date of Evaluation: 03/24/25 Date of Discharge: 05/09/25 Treatments to Date: 8 Cancellations to Date: 1 No Shows to Date: 2 Discharge Status: Improved Function Independent with HEP Discharge Summary: Pt had been progressing well in PT and DC had been anticipated. Pt no showed for last scheduled visit so formal reassess was not performed. Pt has an in depth formal home program which he is encouraged to continue for self-maintenance of symptoms. Electronically signed by: Marlee Grover PT DPT Please sign and return to therapist. Thank you for your referral.
== END 2025-05-09 08:50 | disposition home or self-care (01) ==
LOC: HO.PT 13:59
PROVIDERS: PCP Registered Nurse; Visit Provider Registered Nurse Emergency
DX: M53.3 Sacrococcygeal disorders, not elsewhere classified (principal); M54.16 Radiculopathy, lumbar region
CPT/HCPCS: 97014; 97110; 97162; 97530; 97535